=== PATIENT | female | born 1995 | race African-American/Black ===

== ENCOUNTER 2017-11-09 22:01 | Emergency (ER) | payer SELFPAY ==
[~2017-11-09] VITALS: Ht 167.6 cm; Wt 95.7 kg
[2017-11-09] MEDS ORDERED: IV NORMAL SALINE 1,000ML 1,000 ML IV ONE (23:00)
[2017-11-09] MEDS ORDERED: KETOROLAC 30 MG/ML VIAL. IV ONE (23:00)
[2017-11-09] MEDS ORDERED: ONDANSETRON PF 4 MG/2 ML VIAL. IV ONE (23:00)
[2017-11-09 23:30] LABS: BASO # 0.1 x10^3/uL (0.0-0.2); BASO % 1 % (0-3); EOS # 0.7 x10^3/uL (0.0-0.7); EOS % 6 % (0-3); HEMATOCRIT 40.9 % (36.0-47.0); HEMOGLOBIN 13.5 g/dL (12.0-15.5); LYMPH # 4.6 x10^3/uL (1.0-4.8); LYMPH % 39 % (24-48); MEAN CORPUSCULAR HEMOGLOBIN 30 pg (25-35); MEAN CORPUSCULAR HGB CONC 33 g/dL (31-37); MEAN CORPUSCULAR VOLUME 90 fL (79-100); MONO # 0.7 x10^3/uL (0.0-1.1); MONO % 6 % (0-9); NEUT # 5.6 x10^3uL (1.8-7.7); NEUT % 48 % (31-73); PLATELET COUNT 304 x10^3/uL (140-400); RED BLOOD COUNT 4.57 x10^6/uL (3.50-5.40); RED CELL DISTRIBUTION WIDTH 15.3 % (11.5-14.5); WHITE BLOOD COUNT 11.7 x10^3/uL (4.0-11.0)
[2017-11-09] MEDS ORDERED: CONTRAST GIVEN MC PRN (23:30)
[2017-11-09] MEDS ORDERED: IOHEXOL 300 MG/ML 75 ML VIAL. IV ONE (23:30)
[2017-11-09 23:34] LABS: BILIRUBIN,URINE NEG (NEG); CLARITY,URINE CLEAR; COLOR,URINE YELLOW; GLUCOSE,URINE NEG (NEG)
[2017-11-09 23:35] LABS: BACTERIA,URINE 0 /HPF (0-FEW); NITRITE,URINE NEG (NEG); RBC,URINE 0 /HPF (0-2); SQUAMOUS EPITHELIAL CELL,UR MANY /LPF; UROBILINOGEN,URINE 0.2 mg/dL (0.2 mg/dL); WBC,URINE OCC /HPF (0-4)
[2017-11-09 23:39] LABS: ALBUMIN 3.8 g/dL (3.4-5.0); ALBUMIN/GLOBULIN RATIO 1.1 (1.0-1.7); CALCIUM 9.1 mg/dL (8.5-10.1); CREATININE 0.8 mg/dL (0.6-1.0); GFR 107.6; TOTAL BILIRUBIN 0.3 mg/dL (0.2-1.0); TOTAL PROTEIN 7.4 g/dL (6.4-8.2)
--- NOTE | 2017-11-09 23:59 | RAD ---
CT abdomen and pelvis with contrast HISTORY: Umbilical abdominal pain and palpable mass, occasional constipation. TECHNIQUE: Helical CT imaging of the abdomen and pelvis 75 mL Omnipaque 300 intravenous contrast. Abdomen findings: There is mild striation of the right renal nephrogram and perhaps a slight delay of the nephrogram with mild right renal hydronephrosis may be indicative of pyelonephritis or sequela of a recently passed urinary calculus. Left kidney, pancreas, gallbladder, adrenals, liver and spleen are unremarkable. Moderate volume of stool within the colon. There is diastases of the rectus abdominis muscles with laxity of the abdominal wall without a discrete hernia sac. Appendix is negative. No bowel obstruction or inflammatory changes. No abdominal fluid or adenopathy. Lower lumbar spine disc bulges. Pelvis findings: Uterus, ovaries, bladder, rectum and bones are unremarkable. No pelvic fluid or adenopathy. IMPRESSION: 1. Mild right renal hydronephrosis and striation of the right renal nephrogram may be indicative of pyelonephritis. See discussion above. 2. The appendix is negative. 3. Diastases of the rectus abdominis muscles. Exposure: One or more of the following individualized dose reduction techniques were utilized for this examination: 1. Automated exposure control 2. Adjustment of the mA and/or kV according to patient size 3. Use of iterative reconstruction technique Electronically signed by: Pito Villa MD (11/09/2017 11:56 PM) [facility]
[2017-11-10] MEDS ORDERED: HYDR-971 PO (00:22)
--- NOTE | 2017-11-10 00:22 | PHYS DOC ---
Past History Past Medical History: No Pertinent History Past Surgical History: No Surgical History Alcohol Use: None Drug Use: None Adult General Chief Complaint Chief Complaint: ABDOMINAL PAIN HPI HPI Patient is a 22 year old female who presents with abdominal pain. The patient reports periumbilical abdominal tenderness with sensation of a lump, for about 1 week. She states the lump has been there constantly. She denies associated symptoms including fevers/chills, nausea, vomiting, diarrhea, dysuria, hematuria , vaginal bleeding/discharge. She denies past medical history, only abdominal surgery is tubal ligation. Review of Systems Review of Systems Constitutional: Denies fever or chills HENT: Denies nasal congestion or sore throat Respiratory: Denies cough or shortness of breath Cardiovascular: Denies chest pain or edema GI: Reports abdominal pain, denies nausea, vomiting, bloody stools or diarrhea : Denies dysuria or hematuria Musculoskeletal: Denies back pain or joint pain Integument: Denies rash or skin lesions Neurologic: Denies headache, focal weakness or sensory changes All other systems were reviewed and found to be within normal limits, except as documented in this note. Current Medications Current Medications Current Medications Medications (Trade) Dose Ordered Sig/Magdy Start Time Stop Time Status Last Admin Dose Admin Info (Do NOT chart on this entry -- for MONITORING) 1 each PRN DAILY PRN 11/09/17 23:30 11/11/17 23:29 Iohexol (Omnipaque 300 Mg/ml) 75 ml 1X ONCE 11/09/17 23:30 11/09/17 23:31 DC 11/09/17 23:29 75 ML Ketorolac Tromethamine (Toradol) 30 mg 1X ONCE 11/09/17 23:00 11/09/17 23:01 DC 11/09/17 22:59 30 MG Ondansetron HCl (Zofran) 4 mg 1X ONCE 11/09/17 23:00 11/09/17 23:01 DC 11/09/17 22:58 4 MG Sodium Chloride 1,000 ml @ 1,000 mls/hr 1X ONCE 11/09/17 23:00 11/09/17 23:59 DC 11/09/17 22:58 1,000 MLS/HR Allergies Allergies Allergies Coded Allergies Type Severity Reaction Last Updated Verified No Known Drug Allergies 11/09/17 No Physical Exam Physical Exam Constitutional: obese, no acute distress, non-toxic appearance. HENT: Normocephalic, atraumatic, bilateral external ears normal, oropharynx moist, nose normal. Eyes: conjunctiva normal, no discharge. Neck: supple, no stridor. Cardiovascular: RRR, no murmurs, no edema. Lungs & Thorax: LCTAB, no wheezing, no respiratory distress. Abdomen: soft, periumbilical tenderness with possible slight swelling laterally to the right from the umbilicus which is associated with tenderness, otherwise no focal tenderness, no rebound/guarding, nondistended. Skin: Warm, dry, no erythema, no rash. Back: No CVA tenderness. Extremities: No tenderness, no edema. Neurologic: Alert and oriented X 3, no focal deficits noted. Psychologic: Affect normal, judgement normal, mood normal. Current Patient Data Lab Results Laboratory Tests Test 11/09/17 22:18 11/09/17 22:25 White Blood Count 11.7 x10^3/uL (4.0-11.0) H Red Blood Count 4.57 x10^6/uL (3.50-5.40) Hemoglobin 13.5 g/dL (12.0-15.5) Hematocrit 40.9 % (36.0-47.0) Mean Corpuscular Volume 90 fL (79-100) Mean Corpuscular Hemoglobin 30 pg (25-35) Mean Corpuscular Hemoglobin Concent 33 g/dL (31-37) Red Cell Distribution Width 15.3 % (11.5-14.5) H Platelet Count 304 x10^3/uL (140-400) Neutrophils (%) (Auto) 48 % (31-73) Lymphocytes (%) (Auto) 39 % (24-48) Monocytes (%) (Auto) 6 % (0-9) Eosinophils (%) (Auto) 6 % (0-3) H Basophils (%) (Auto) 1 % (0-3) Neutrophils # (Auto) 5.6 x10^3uL (1.8-7.7) Lymphocytes # (Auto) 4.6 x10^3/uL (1.0-4.8) Monocytes # (Auto) 0.7 x10^3/uL (0.0-1.1) Eosinophils # (Auto) 0.7 x10^3/uL (0.0-0.7) Basophils # (Auto) 0.1 x10^3/uL (0.0-0.2) Sodium Level 140 mmol/L (136-145) Potassium Level 4.0 mmol/L (3.5-5.1) Chloride Level 105 mmol/L (98-107) Carbon Dioxide Level 30 mmol/L (21-32) Anion Gap 5 (6-14) L Blood Urea Nitrogen 16 mg/dL (7-20) Creatinine 0.8 mg/dL (0.6-1.0) Estimated GFR (Cockcroft-Gault) 107.6 BUN/Creatinine Ratio 20 (6-20) Glucose Level 94 mg/dL (70-99) Calcium Level 9.1 mg/dL (8.5-10.1) Total Bilirubin 0.3 mg/dL (0.2-1.0) Aspartate Amino Transferase (AST) 16 U/L (15-37) Alanine Aminotransferase (ALT) 26 U/L (14-59) Alkaline Phosphatase 126 U/L (46-116) H Total Protein 7.4 g/dL (6.4-8.2) Albumin 3.8 g/dL (3.4-5.0) Albumin/Globulin Ratio 1.1 (1.0-1.7) Urine Collection Type Unknown Urine Color Yellow Urine Clarity Clear Urine pH 6.0 Urine Specific [place] 1.020 Urine Protein Neg (NEG-TRACE) Urine Glucose (UA) Neg mg/dL (NEG) Urine Ketones (Stick) Neg mg/dL (NEG) Urine Blood Neg (NEG) Urine Nitrite Neg (NEG) Urine Bilirubin Neg (NEG) Urine Urobilinogen Dipstick 0.2 mg/dL (0.2 mg/dL) Urine Leukocyte Esterase Neg (NEG) Urine RBC 0 /HPF (0-2) Urine WBC Occ /HPF (0-4) Urine Squamous Epithelial Cells Many /LPF Urine Bacteria 0 /HPF (0-FEW) EKG EKG [] Radiology/Procedures Radiology/Procedures PROCEDURE: CT ABD PELV W/ IV CONTRST ONLY CT abdomen and pelvis with contrast HISTORY: Umbilical abdominal pain and palpable mass, occasional constipation. TECHNIQUE: Helical CT imaging of the abdomen and pelvis 75 mL Omnipaque 300 intravenous contrast. Abdomen findings: There is mild striation of the right renal nephrogram and perhaps a slight delay of the nephrogram with mild right renal hydronephrosis may be indicative of pyelonephritis or sequela of a recently passed urinary calculus. Left kidney, pancreas, gallbladder, adrenals, liver and spleen are unremarkable. Moderate volume of stool within the colon. There is diastases of the rectus abdominis muscles with laxity of the abdominal wall without a discrete hernia sac. Appendix is negative. No bowel obstruction or inflammatory changes. No abdominal fluid or adenopathy. Lower lumbar spine disc bulges. Pelvis findings: Uterus, ovaries, bladder, rectum and bones are unremarkable. No pelvic fluid or adenopathy. IMPRESSION: 1. Mild right renal hydronephrosis and striation of the right renal nephrogram may be indicative of pyelonephritis. See discussion above. 2. The appendix is negative. 3. Diastases of the rectus abdominis muscles. Exposure: One or more of the following individualized dose reduction techniques were utilized for this examination: 1. Automated exposure control 2. Adjustment of the mA and/or kV according to patient size 3. Use of iterative reconstruction technique Electronically signed by: Pito Villa MD (11/09/2017 11:56 PM) [facility] DICTATED AND SIGNED BY: PITO VILLA MD DATE: 11/09/17 2348[] Course & Med Decision Making Course & Med Decision Making Pertinent Labs and Imaging studies reviewed. (See chart for details) The patient presents with abdominal pain. Suspect possible umbilical hernia. Gave pain medication. Obtained labs, UA, CT abdomen/pelvis. She has diastasis of rectus abdominus muscles but no sign of hernia particularly one that is incarcerated or strangulated. Possible renal abnormality on CT but there was no evidence of UTI on her UA. She felt better after treatment. Recommend rest , hydration, pain medication as needed ideally tylenol or ibuprofen but will give limited quantity of norco, may not drink alcohol or drive while taking norco. Follow up with primary care, may need PT referral. Come back for high fever, severe pain, uncontrolled vomiting, any otherwise worsening condition. Discharged home in stable condition. [] Dragon Disclaimer Dragon Disclaimer This electronic medical record was generated, in whole or in part, using a voice recognition dictation system. Departure Departure: Impression: Primary Impression: Abdominal pain Additional Impression: Diastasis of rectus abdominis Disposition: HOME, SELF-CARE Condition: STABLE Referrals: PCP,NO (PCP) Patient Instructions: Abdominal Pain, [id number] Additional Instructions: You seen in the emergency department today for abdominal pain. Tests did not show a serious cause of symptoms. Your CT did show diastasis (loosening/ separation) of the rectus abdominal muscles which can occur after & childbirth. Please rest, drink fluids, take tylenol or ibuprofen for pain, use norco for severe pain. No drinking alcohol or driving while taking norco. Follow up with primary care in 2-3 days. You may need to do physical therapy to strengthen these muscles. Come back for high fever, severe pain, uncontrolled vomiting, any otherwise worsening condition. Scripts Hydrocodone Bit/Acetaminophen (NORCO 5-325 TABLET) 1 Each Tablet 1-2 TAB PO Q4-6HRS Y for SEVERE PAIN, #10 TAB Prov: GLENROY MCNEILL MD 11/10/17 Problem Qualifiers Primary Impression: Abdominal pain Abdominal location: unspecified location Qualified Codes: R10.9 - Unspecified abdominal pain GLENROY MCNEILL MD Nov 10, 2017 00:22
[2017-11-10 00:49] VITALS: BP 145/105
== END 2017-11-10 00:51 | disposition home or self-care (01) ==
LOC: ER 22:01
DX: Q79.59 Other congenital malformations of abdominal wall (principal); R10.33 Periumbilical pain
CPT/HCPCS: 36415; 74177; 80053; 81001; 85025; 96361; 96374; 96375; 99285; J1885; J2405; Q9967; J7030

== ENCOUNTER 2017-11-24 19:23 | Emergency (ER) | payer OTHER ==
[~2017-11-24] VITALS: Ht 167.6 cm; Wt 101.8 kg
[~2017-11-24 19:23] MED LIST: HYDR-971 PO
[2017-11-24] MEDS ORDERED: IV NORMAL SALINE 1,000ML 1,000 ML IV SCH (19:58)
[2017-11-24] MEDS ORDERED: MORPHINE SULFATE 4 MG/ML DISP.SYRIN. IV/SQ PRN (20:00)
[2017-11-24 20:04] LABS: BILIRUBIN,URINE NEG (NEG); CLARITY,URINE CLEAR; COLOR,URINE YELLOW; GLUCOSE,URINE NEG (NEG)
[2017-11-24 20:05] LABS: NITRITE,URINE NEG (NEG); UROBILINOGEN,URINE 0.2 mg/dL (0.2 mg/dL)
--- NOTE | 2017-11-24 20:05 | PHYS DOC ---
General Chief Complaint: ABDOMINAL PAIN Stated Complaint: ABDOMINAL PAIN X 1 WK Time Seen by MD: 19:36 Source: patient Exam Limitations: no limitations Problems: History of Present Illness Initial Comments Patient is a 22-year-old female who comes in the ED complaining of abdominal pain. Patient states for the past 4-5 days she's had abdominal pain which has been changing. She states that initially it was located periumbilically described as dull and crampy and over the past few days it has migrated down to the right lower quadrant. She's had decreased appetite, states she hasn't had anything to eat since yesterday. She does feel as if her abdomen is mildly swollen, she had 2 episodes of vomiting today after feeling as if her abdomen swelled over time, she began burping, then vomited with relief. She hasn't had a normal bowel movement since yesterday, states she had a small one this morning which was very low volume and loose. No blood in stools or emesis denies fever chills sweats or myalgias no travel or bad food exposure. Patient is 2 para 2 she has history of tubal ligation and lysis of adhesions in the past. She is also having a scant whitish vaginal discharge denies any recent antibiotics or steroids or other medications for that matter. She delivered a healthy baby 4 months ago and has had one. Since that time and is 5 days late currently for this menstrual cycle. Urine dipstick is negative in the emergency department as is urine hCG. Timing/Duration: 1 week Severity: moderate Modifying Factors: worse with eating, worse with movement, improves with rest Associated Symptoms: loss of appetite, nausea/vomiting, other Allergies: Coded Allergies: No Known Drug Allergies (Unverified , 11/09/17) Past Medical History Medical History: no pertinent history Surgical History: other (TL, lysis adhesions) Para: 2 : 2 LMP (Females 10-50): s/p TL, missed last month's period Social History Smoker: non-smoker Alcohol: none Drugs: none Review of Systems Constitutional: denies chills, denies diaphoresis, denies fever, denies malaise Respiratory: denies cough, denies shortness of breath Cardiovascular: denies chest pain, denies palpitations Gastrointestinal: see HPI, abdominal pain, constipation, denies diarrhea, denies nausea, vomiting Genitourinary: see HPI, discharge, denies dysuria, denies frequency, denies hematuria Musculoskeletal: denies back pain, denies joint swelling, denies muscle pain, denies neck pain Psychiatric/Neurological: denies headache, denies numbness, denies paresthesia , denies weakness Hematologic/Lymphatic: denies blood clots, denies easy bleeding, denies easy bruising Physical Exam General Appearance: no apparent distress, obese Eyes: bilateral eye normal inspection, bilateral eye PERRL, bilateral eye EOMI Ear, Nose, Throat: hearing grossly normal, normal ENT inspection, normal pharynx Neck: non-tender, supple Respiratory: normal breath sounds, no respiratory distress Cardiovascular: normal peripheral pulses, regular rate, rhythm Gastrointestinal: soft (mildly distended/tympanic, bilateral lower quadrant tenderness mild on the left, exquisite McBurney point tenderness on the right without rebound guarding or masses negative Oliveira bowel sounds are diminished) Rectal: deferred Back: no CVA tenderness, no vertebral tenderness Extremities: normal range of motion, non-tender Neurologic/Psychiatric: reweaver II-XII nml as tested, no motor/sensory deficits, alert, normal mood/affect, oriented x 3 Skin: normal color, warm/dry Orders, Labs, Meds Urine dipstick and urine negative in the emergency department 1 L normal saline IV bolus, Toradol 30 mg, Zofran 4 mg and when necessary dose morphine 4 mg all ordered intravenously. Labs CT in the works patient is resting comfortably. PATIENT: MAGGIE SANCHEZ ACCOUNT: [id number] : 1995 LOCATION: ER AGE: 22 SEX: F EXAM STATUS: PRE ER ORD. PHYSICIAN: MARTITA ADAMS DO REASON: RLQ pain, anorexia PROCEDURE: CT ABD PELV W/ IV CONTRST ONLY CT SCAN OF THE ABDOMEN AND PELVIS WITH IV CONTRAST. History: Right lower quadrant pain and anorexia Comparison:None. Procedure: Contiguous axial images of the abdomen and pelvis were performed after the administration of 75 cc of Omni 300 IV contrast and without oral contrast. CT Abdomen with contrast: Findings: Liver: Unremarkable Spleen: Unremarkable Pancreas: Unremarkable Adrenal Glands: Unremarkable Kidneys: Unremarkable There is no free air. There is no free fluid. There are multiple small borderline size mesenteric lymph nodes in the right lower quadrant. CT Pelvis with Contrast: Findings: The urinary bladder is partially collapsed and there is apparent mild wall thickening. There is no free fluid. The appendix is normal. Impression: 1. Mild lymphadenopathy in the right lower quadrant of the abdomen could be lymphadenitis. 2. Mild wall thickening of the urinary bladder could be nondistention however cystitis is possible. PQRS Compliance Statement: One or more of the following individualized dose reduction techniques were utilized for this examination: 1. Automated exposure control 2. Adjustment of the mA and/or kV according to patient size 3. Use of iterative reconstruction technique Electronically signed by: Janel Chang III, MD (11/24/2017 8:48 PM) [facility] DICTATED AND SIGNED BY: JANEL CHANG III, MD DATE: 11/24/172038 CC: PCP,NO; MARTITA ADAMS DO ~ I discussed menstrual cycle after and advised her that it would likely take several cycles before she became regular. I discussed increase fluid intake as well as Alicia few vegetables bananas and other foods containing potassium. I discussed the nonspecific lymphadenopathy noted in her abdomen in the absence of any emergent condition requiring further evaluation or treatment in the emergency department. She was given a Zofran ODT start pack , dicyclomine by mouth as well as a glycerin suppository prior to discharge. Signs and symptoms to monitor for as well as indications for urgent return to the department were discussed and her questions were answered to her satisfaction and she expressed agreement and understanding with the treatment plan. She will follow up with her OB Dr. Poe next week as advised. Departure Time of Disposition: 21:01 Disposition: 01 HOME, SELF-CARE Diagnosis: abdominal pain, hypokalemia, constipation, irregul Condition: GOOD Patient Instructions: Abdominal Pain (Nonspecific), Constipation, Adult, Easy- to-Read, Hypokalemia-Brief Additional Instructions: Please review the patient education materials given by ED staff. Aggressive hydration with Gatorade or water. Clear liquids today, advance diet slowly tomorrow as tolerated. [id number] Tylenol as needed. Prescription: Zofran ODT, dicyclomine Eat 1 banana twice daily for potassium replacement until follow-up with your doctor. Follow-up with your human resources vice president Dr. Poe next week. Return to ED with new or changing symptoms. MARTITA ADAMS DO Nov 24, 2017 20:05
[2017-11-24] MEDS ORDERED: CONTRAST GIVEN MC PRN (20:15)
[2017-11-24 20:24] LABS: BARBITURATES NEG (NEG); BENZODIAZEPINES NEG (NEG); CANNABINOIDS NEG (NEG); COCAINE NEG (NEG); METHADONE NEG (NEG); OPIATES NEG (NEG); PHENCYCLIDINE NEG (NEG)
[2017-11-24 20:25] LABS: AMPHETAMINE/METHAMPHETAMINE NEG (NEG)
[2017-11-24] MEDS ORDERED: KETOROLAC 30 MG/ML VIAL. IV ONE (20:30)
[2017-11-24] MEDS ORDERED: IOHEXOL 300 MG/ML 75 ML VIAL. IV ONE (20:30)
[2017-11-24] MEDS ORDERED: ONDANSETRON PF 4 MG/2 ML VIAL. IV ONE (20:30)
[2017-11-24 20:39] LABS: BASO # 0.1 x10^3/uL (0.0-0.2); BASO % 1 % (0-3); EOS # 0.6 x10^3/uL (0.0-0.7); EOS % 4 % (0-3); HEMOGLOBIN 14.2 g/dL (12.0-15.5); LYMPH # 4.2 x10^3/uL (1.0-4.8); LYMPH % 31 % (24-48); MEAN CORPUSCULAR HEMOGLOBIN 30 pg (25-35); MEAN CORPUSCULAR HGB CONC 33 g/dL (31-37); MEAN CORPUSCULAR VOLUME 90 fL (79-100); MONO # 0.8 x10^3/uL (0.0-1.1); MONO % 6 % (0-9); NEUT % 59 % (31-73); PLATELET COUNT 274 x10^3/uL (140-400); RED BLOOD COUNT 4.78 x10^6/uL (3.50-5.40); RED CELL DISTRIBUTION WIDTH 15.1 % (11.5-14.5); WHITE BLOOD COUNT 13.7 x10^3/uL (4.0-11.0)
[2017-11-24 20:51] LABS: ALBUMIN 3.9 g/dL (3.4-5.0); CALCIUM 8.9 mg/dL (8.5-10.1); CREATININE 0.9 mg/dL (0.6-1.0); GFR 93.9; POTASSIUM 3.4 mmol/L (3.5-5.1); TOTAL BILIRUBIN 0.3 mg/dL (0.2-1.0); TOTAL PROTEIN 7.9 g/dL (6.4-8.2)
--- NOTE | 2017-11-24 20:51 | RAD ---
CT SCAN OF THE ABDOMEN AND PELVIS WITH IV CONTRAST. History: Right lower quadrant pain and anorexia Comparison:None. Procedure: Contiguous axial images of the abdomen and pelvis were performed after the administration of 75 cc of Omni 300 IV contrast and without oral contrast. CT Abdomen with contrast: Findings: Liver: Unremarkable Spleen: Unremarkable Pancreas: Unremarkable Adrenal Glands: Unremarkable Kidneys: Unremarkable There is no free air. There is no free fluid. There are multiple small borderline size mesenteric lymph nodes in the right lower quadrant. CT Pelvis with Contrast: Findings: The urinary bladder is partially collapsed and there is apparent mild wall thickening. There is no free fluid. The appendix is normal. Impression: 1. Mild lymphadenopathy in the right lower quadrant of the abdomen could be lymphadenitis. 2. Mild wall thickening of the urinary bladder could be nondistention however cystitis is possible. PQRS Compliance Statement: One or more of the following individualized dose reduction techniques were utilized for this examination: 1. Automated exposure control 2. Adjustment of the mA and/or kV according to patient size 3. Use of iterative reconstruction technique Electronically signed by: Justus Currie III, MD (11/24/2017 8:48 PM) [facility]
[2017-11-24] MEDS ORDERED: GLYC1SUP RC (21:06)
[2017-11-24] MEDS ORDERED: DICY20TA3 PO (21:06)
[2017-11-24] MEDS ORDERED: ONDA4TAB10 PO (21:06)
[2017-11-24] MEDS ORDERED: DICYCLOMINE HCL 20 MG TABLET PO ONE (21:15)
[2017-11-24 21:19] VITALS: BP 164/98
[2017-11-24] MEDS ORDERED: ONDANSETRON 4MG ODT 4TABLET STARTPACK. PO ONE (21:30)
[2017-11-24] MEDS ORDERED: GLYCERIN ADULT 1 SUPP.RECT. PR ONE (21:30)
== END 2017-11-24 21:24 | disposition home or self-care (01) ==
LOC: ER 19:23
DX: K59.00 Constipation, unspecified (principal); E87.6 Hypokalemia; N89.8 Other specified noninflammatory disorders of vagina; Z98.51 Tubal ligation status
CPT/HCPCS: 36415; 74177; 80053; 80307; 81003; 81025; 83690; 85025; 96361; 96374; 96375; 99285; J1885; J2270; J2405; Q0162; Q9967; G0479; J7030

== ENCOUNTER 2018-01-26 09:21 | Emergency (ER) | payer SELFPAY ==
[~2018-01-26] VITALS: Ht 167.6 cm; Wt 98.9 kg
[~2018-01-26 09:21] MED LIST changes: +DICY20TA3 PO; +GLYC1SUP RC; +ONDA4TAB10 PO
[2018-01-26] MEDS ORDERED: IBUPROFEN 600 MG TABLET. PO ONE (10:15)
[2018-01-26] MEDS ORDERED: LIDO:MAALOX 1:1 20 ML SINGLE DOSE PO ONE (10:30)
[2018-01-26] MEDS ORDERED: PENICILLIN G BENZATHINE LA 1,200,000 UNIT/2 ML DISP.SYRIN. IM ONE (10:30)
[2018-01-26 10:38] LABS: INFLUENZA A PATIENT NEGATIVE (NEGATIVE); INFLUENZA B PATIENT NEGATIVE (NEGATIVE)
[2018-01-26 10:51] VITALS: BP 150/97
--- NOTE | 2018-01-26 10:52 | PHYS DOC ---
General Chief Complaint: sore throat Stated Complaint: sore throat Time Seen by MD: 09:47 Source: patient Exam Limitations: no limitations Problems: History of Present Illness Initial Comments 22 female presents with 24-hour sore throat. Throat pain limiting by mouth intake patient is still drinking fluids she denies difficulty breathing or difficulty swallowing. She's had chills and sweats no measured fevers no known sick contacts with similar symptoms. She normally healthy and is a nonsmoker. Timing/Duration: yesterday Severity: severe Location: throat Prearrival Treatment: over the counter meds Modifying Factors: worse with coughing Associated Symptoms: malaise, poor solids intake, sore throat Allergies: Coded Allergies: No Known Drug Allergies (Unverified , 11/09/17) Past Medical History Medical History: no pertinent history Surgical History: other Social History Smoker: non-smoker Alcohol: none Drugs: none Constitutional: denies chills, denies diaphoresis, denies fever, malaise Ears: denies dizziness, denies pain, denies tinnitus Nose: denies clots, denies congestion, denies epistaxis Mouth: denies pain, denies swelling Throat: see HPI, denies discharge, denies neck stiffness, denies difficulty with fluids Respiratory: denies cough, denies shortness of breath, denies wheezing Cardiovascular: denies chest pain, denies palpitations, denies syncope Gastrointestinal: denies abdominal pain, denies nausea, denies vomiting Physical Exam General Appearance: WD/WN, no apparent distress Eyes: bilateral eye normal inspection, bilateral eye PERRL, bilateral eye EOMI Nose: normal inspection Mouth/Throat: other (pharynx is beefy red with exudate airway is patent) Neck: supple, trachea midline, lymphadenopathy (R), lymphadenopathy (L) Cardiovascular/Respiratory: normal peripheral pulses, normal breath sounds, no respiratory distress Neurologic/Psychiatric: health information manager II-XII nml as tested, no motor/sensory deficits, alert, oriented x 3 Skin: normal color, warm/dry Orders, Labs, Meds Influenza negative, strep positive Penicillin given IM Patient is feeling much better after GI cocktail. Departure Time of Disposition: 10:51 Disposition: 01 HOME, SELF-CARE Diagnosis: strep pharyngitis Condition: GOOD Patient Instructions: Strep Throat, [id number] Additional Instructions: Please review the patient education materials given by ED staff. Aggressive hydration with Gatorade and water. [id number] Tylenol, ibuprofen, and analgesic throat sprays as needed. The penicillin injection he received in the emergency department should be sufficient to resolve or strep infection. Follow-up with a doctor in 10-14 days for recheck. Return to ED with new or changing symptoms. CHAPARRO ADAMS DO Jan 26, 2018 10:52
== END 2018-01-26 10:56 | disposition home or self-care (01) ==
LOC: ER 09:21
DX: J02.0 Streptococcal pharyngitis (principal)
CPT/HCPCS: 87804; 87880; 96372; 99284; J0561

== ENCOUNTER 2018-04-12 10:18 | Emergency (ER) | payer SELFPAY ==
[~2018-04-12] VITALS: Ht 167.6 cm; Wt 98.9 kg
[2018-04-12] MEDS ORDERED: diphenhydrAMINE 50 MG/ML VIAL IVP ONE (10:30)
[2018-04-12] MEDS ORDERED: IV NORMAL SALINE 1,000ML 1,000 ML IV ONE (10:30)
[2018-04-12] MEDS ORDERED: METOCLOPRAMIDE HCL 10 MG/2 ML VIAL. IV ONE (10:30)
--- NOTE | 2018-04-12 11:07 | RAD ---
CT of the head without contrast, 04/12/2018: HISTORY: Headache The ventricles are within normal limits in size. There is no shift of the midline structures. There is no evidence of acute intracranial hemorrhage or mass effect. Moderate mucosal thickening is present in both ethmoid sinuses. The maxillary sinuses are incompletely visualized. IMPRESSION: 1. No acute intracranial abnormality is detected. 2. Inflammatory changes in both ethmoid sinuses. Electronically signed by: Lázaro Phillips MD (04/12/2018 11:03 AM) [facility]
--- NOTE | 2018-04-12 11:50 | PHYS DOC ---
Past History Past Medical History: Other Past Surgical History: Tubal ligation Alcohol Use: None Drug Use: None Adult General Chief Complaint Chief Complaint: HEADACHE HPI HPI 22-year-old female presenting to the emergency pertinent today with headache. Headache moderate in severity associated with nausea. His been present for 2 weeks. Worse with light and sound. Improved with ibuprofen mildly. She denies a history of headaches and reports that this is an atypical headache. She denies any recent exposures to viral exanthems or tick bites. She reports mild intermittent blurred vision. She denies fevers chills neck stiffness numbness weakness tingling dysarthria or dysphasia. Review of systems is negative for chest pain shortness of breath abdominal pain nausea vomiting. She denies being . All other review of systems is negative unless otherwise noted in history of present illness. ED course: 22-year-old female presenting today to the emergency department with a headache. On arrival she is afebrile with mildly elevated blood pressure. Pulse is within normal limits. Saturating well on room air. Normal neurologic exam. I had a fairly extensive risk-benefit discussion with the patient about diagnostic workup for atypical headache. I always perform head CT with lumbar puncture for atypical headaches to evaluate patients for infection bleeding and pseudotumor cerebri along with other conditions. The patient does not desire to have a lumbar puncture. She was okay with having a head CT. She understand the risk and benefits and the lack of ability for only a head CT to rule out life- threatening conditions. She demonstrates verbal understanding that this could lead to including but not limited to disability or chronic suffering. Patient is willing to take this risk upon herself. Head CT performed which was unremarkable. Patient refuses lumbar puncture. Patient accepts risk. Patient signed out AMA. Patient informed that we'll be happy to take care of her if she desires to come back. The patient was then to follow up with their primary care physician over the next 2-3 days. They were to return if their symptoms worsened or if they were concerned for any reason. [id number] discharge instructions and return precautions were given. Patient's questions were answered to their satisfaction. Patient is comfortable with plan. Review of Systems Review of Systems SEE ABOVE. Current Medications Current Medications Current Medications Medications (Trade) Dose Ordered Sig/Magdy Start Time Stop Time Status Last Admin Dose Admin Diphenhydramine HCl (Benadryl) 25 mg 1X ONCE 04/12/18 10:30 04/12/18 10:34 DC 04/12/18 10:47 25 MG Metoclopramide HCl (Reglan Vial) 10 mg 1X ONCE 04/12/18 10:30 04/12/18 10:34 DC 04/12/18 10:46 10 MG Sodium Chloride 1,000 ml @ 1,000 mls/hr 1X ONCE 04/12/18 10:30 04/12/18 11:29 DC 04/12/18 10:46 1,000 MLS/HR Allergies Allergies Allergies Coded Allergies Type Severity Reaction Last Updated Verified No Known Drug Allergies 04/12/18 No Physical Exam Physical Exam SEE ABOVE Constitutional: Well developed, well nourished, no acute distress, non-toxic appearance. HENT: Normocephalic, atraumatic, bilateral external ears normal, oropharynx moist, no oral exudates, nose normal. No nuchal rigidity. Eyes: PERRLA, EOMI, conjunctiva normal, no discharge. Neck: Normal range of motion, no tenderness, supple, no stridor. [] Cardiovascular:Heart rate regular rhythm, no murmur Lungs & Thorax: Bilateral breath sounds clear to auscultation Abdomen: Bowel sounds normal, soft, no tenderness, no masses, no pulsatile masses. [] Skin: Warm, dry, no erythema, no rash. Back: No tenderness, no CVA tenderness. Extremities: No tenderness, no cyanosis, no clubbing, ROM intact, no edema. Neurologic: Mental status: Awake oriented and alert x3 Cranial nerves: Extraocular movements intact, eyebrows edwige bilaterally, smile symmetric, uvula elevation nl, shoulder shrug intact bilaterally, tongue protrusion normal DTRs: 2+ Sensation: equal and normal in all extremities Strength: 5/5 in upper and lower extremities bilaterally Psychologic: Affect normal, judgement normal, mood normal. Current Patient Data Vital Signs Vital Signs Date Time Temp Pulse Resp B/P (MAP) Pulse Ox O2 Delivery O2 Flow Rate FiO2 04/12/18 10:26 98.6 90 16 98 Room Air Lab Results Laboratory Tests Test 04/12/18 09:40 POC Urine HCG, Qualitative hcg negative (Negative) EKG EKG [] Radiology/Procedures Radiology/Procedures [] Course & Med Decision Making Course & Med Decision Making Pertinent Labs and Imaging studies reviewed. (See chart for details) [] Dragon Disclaimer Dragon Disclaimer This electronic medical record was generated, in whole or in part, using a voice recognition dictation system. Departure Departure: Impression: Primary Impression: Headache Disposition: AGAINST MEDICAL ADVICE Condition: STABLE Referrals: PCP,NO (PCP) Patient Instructions: General Headache Without Cause, [id number] Additional Instructions: Thank you for allowing us to participate in your care today. Return if you desire to complete the workup with a lumbar puncture. Followup with your primary care physician in 3 days if your symptoms do not improve. Call your Primary Doctor tomorrow and inform them of your visit today. If you do not have a primary care provider you can ask for a list of our primary care providers. Return to the emergency department you have any new or concerning findings. This should be evaluated by the primary care physician and any necessary consulting services for continued management within a few days after discharge. Return to emergency room if you have any new or concerning symptoms including but not limited to fever, chills, nausea, vomiting, intractable pain, any new rashes, chest pain, shortness of air, uncontrolled bleeding, difficulty breathing, and/or vision loss. If at any time, you are having difficulty getting into your primary care doctor or a specialist, return to the emergency department. OPAL VARGHESE MD April 12, 2018 11:50
[2018-04-12 12:01] VITALS: BP 134/77
== END 2018-04-12 12:02 | disposition left against medical advice (07) ==
LOC: ER 10:18
DX: R51 Headache (principal); R11.0 Nausea; H53.8 Other visual disturbances
CPT/HCPCS: 70450; 81025; 96374; 96375; 99284; J1200; J2765; J7030

== ENCOUNTER 2019-01-19 07:08 | Emergency (ER) | payer SELFPAY ==
[~2019-01-19] VITALS: Ht 162.6 cm; Wt 107.5 kg
[~2019-01-19 07:08] MED LIST changes: +HYDR-3165 PO; -HYDR-971 PO
[2019-01-19 07:14] VITALS: BP 157/98
[2019-01-19] MEDS ORDERED: NAPR-683 PO (07:35)
[2019-01-19] MEDS ORDERED: AMOX500C PO (07:35)
[2019-01-19] MEDS ORDERED: BENZ100C PO (07:35)
--- NOTE | 2019-01-19 07:35 | PHYS DOC ---
Past History Past Medical History: No Pertinent History Past Surgical History: Tubal ligation Alcohol Use: None Drug Use: None Adult General Chief Complaint Chief Complaint: GENERALIZED BODY ACHES HPI HPI Patient is a 23 year old female who presents with complaining of generalized body ache. Patient complaining of nasal congestion, sore throat, dry cough and generalized body aches for the last 3-4 days with subjective fever and chills. Patient denies , vomiting, diarrhea. Review of Systems Review of Systems Constitutional: Reports fever and chills Eyes: Denies change in visual acuity, redness, or eye pain [] HENT: Reports nasal congestion and sore throat Respiratory: Reports cough, denies shortness of breath [] Cardiovascular: No additional information not addressed in HPI [] GI: Denies abdominal pain, nausea, vomiting, bloody stools or diarrhea [] : Denies dysuria or hematuria [] Musculoskeletal: Denies back pain or joint pain , reports myalgia[] Integument: Denies rash or skin lesions [] Neurologic: Denies headache, focal weakness or sensory changes [] Endocrine: Denies polyuria or polydipsia [] All other systems were reviewed and found to be within normal limits, except as documented in this note. Current Medications Current Medications Current Medications Medications (Trade) Dose Ordered Sig/Magdy Start Time Stop Time Status Last Admin Dose Admin Albuterol/ Ipratropium (Duoneb) 3 ml 1X ONCE 01/19/19 07:30 01/19/19 07:31 UNV Benzonatate (Tessalon Perle) 100 mg 1X ONCE 01/19/19 07:30 01/19/19 07:31 UNV Allergies Allergies Allergies Coded Allergies Type Severity Reaction Last Updated Verified No Known Drug Allergies 04/12/18 No Physical Exam Physical Exam Constitutional: Well developed, well nourished, mild distress, non-toxic appearance. [] HENT: Normocephalic, atraumatic, bilateral external ears normal, oropharynx moist, pharyngeal erythema, no oral exudates, nose normal. [] Eyes: PERRLA, EOMI, conjunctiva normal, no discharge. [] Neck: Normal range of motion, no tenderness, supple, no stridor. [] Cardiovascular:Heart rate regular rhythm, no murmur [] Lungs & Thorax: Bilateral breath sounds clear to auscultation [] Abdomen: Bowel sounds normal, soft, no tenderness, no masses, no pulsatile masses. [] Skin: Warm, dry, no erythema, no rash. [] Back: No tenderness, no CVA tenderness. [] Extremities: No tenderness, no cyanosis, no clubbing, ROM intact, no edema. [] Neurologic: Alert and oriented X 3, normal motor function, normal sensory function, no focal deficits noted. [] Psychologic: Affect normal, judgement normal, mood normal. [] Current Patient Data Vital Signs Vital Signs Date Time Temp Pulse Resp B/P (MAP) Pulse Ox O2 Delivery O2 Flow Rate FiO2 01/19/19 07:14 98.3 78 20 20 Room Air EKG EKG [] Radiology/Procedures Radiology/Procedures [] Course & Med Decision Making Course & Med Decision Making Evaluation of patient in ER showed 23-year-old female patient presented with flulike symptom for the last 3-4 days. On discharge patient home to diagnose of flulike symptom and instruction to increase fluid intake and follow up with the primary care physician. Dragon Disclaimer Dragon Disclaimer This electronic medical record was generated, in whole or in part, using a voice recognition dictation system. Departure Departure: Impression: Primary Impression: Flu-like symptoms Disposition: HOME, SELF-CARE (At 0740) Condition: STABLE Referrals: PCP,LEON (PCP) Patient Instructions: Cough, Adult, Viral Syndrome Additional Instructions: Drink plenty of liquids Follow-up with your primary care physician in 3-5 days Return to ER if not getting better Scripts Benzonatate (TESSALON PERLE) 100 Mg Capsule 1 CAP PO TID for cough, #21 CAP Prov: PEREZ QUIJANO MD 01/19/19 Naproxen (NAPROSYN) 500 Mg Tablet 500 MG PO BID for pain, #20 TAB Prov: PEREZ QUIJANO MD 01/19/19 Amoxicillin (AMOXICILLIN) 500 Mg Capsule 1 CAP PO TID for URI, #30 CAP Prov: PEREZ QUIJANO MD 01/19/19 PEREZ QUIJANO MD Jan 19, 2019 07:35
[2019-01-19] MEDS ORDERED: BENZONATATE 100 MG CAPSULE. PO ONE (08:00)
[2019-01-19] MEDS ORDERED: IPRATRPIUM/ALBUTEROL 0.5/2.5MG 3 ML NEBU. NEB ONE (08:00)
== END 2019-01-19 07:50 | disposition home or self-care (01) ==
LOC: ER 07:08
DX: M79.10 Myalgia, unspecified site (principal); R09.81 Nasal congestion; J02.9 Acute pharyngitis, unspecified; R05 Cough; R50.9 Fever, unspecified
CPT/HCPCS: 81025; 94640; 99283; J7620

== ENCOUNTER 2019-02-18 09:26 | Emergency (ER) | payer SELFPAY ==
[~2019-02-18] VITALS: Ht 162.6 cm; Wt 101.8 kg
[~2019-02-18 09:26] MED LIST changes: +AMOX500C PO; +BENZ100C PO; +NAPR-683 PO
[2019-02-18 09:33] VITALS: BP 144/70
[2019-02-18] MEDS ORDERED: D-ME118S2 PO (09:42)
--- NOTE | 2019-02-18 09:43 | PHYS DOC ---
Past History Past Medical History: No Pertinent History Past Surgical History: Tubal ligation Alcohol Use: None Drug Use: None Adult General Chief Complaint Chief Complaint: SHORTNESS OF BREATH HPI HPI Patient is a 23-year-old female who presents with sinus congestion, no shortness of breath, bilateral ear fullness. This is has been going on for the past 2 weeks. No cough. No relief with [id number] Benadryl. Patient has not seen her primary care physician. Nothing seems to make the symptoms better or worse.[] Review of Systems Review of Systems Constitutional: Denies fever or chills [] Eyes: Denies change in visual acuity, redness, or eye pain [] HENT: See history of present illness[] Respiratory: Denies cough or shortness of breath [] Cardiovascular: No chest pain or palpitations[] GI: Denies abdominal pain, nausea, vomiting, bloody stools or diarrhea [] : Denies dysuria or hematuria [] Musculoskeletal: Denies back pain or joint pain [] Integument: Denies rash or skin lesions [] Neurologic: Denies headache, focal weakness or sensory changes [] Endocrine: Denies polyuria or polydipsia [] All other systems were reviewed and found to be within normal limits, except as documented in this note. Allergies Allergies Allergies Coded Allergies Type Severity Reaction Last Updated Verified No Known Drug Allergies 04/12/18 No Physical Exam Physical Exam Constitutional: Well developed, well nourished, no acute distress, non-toxic appearance. [] HENT: Normocephalic, atraumatic, bilateral external ears normal, TMs are clear, no blood, no fluid, there is sinus tenderness to percussion in the maxillary and frontal sinuses, oropharynx moist, no oral exudates, nose normal. [] Eyes: PERRLA, EOMI, conjunctiva normal, no discharge. [] Neck: Normal range of motion, no tenderness, supple, no stridor. [] Cardiovascular:Heart rate regular rhythm, no murmur [] Lungs & Thorax: Bilateral breath sounds clear to auscultation [] Abdomen: Bowel sounds normal, soft, no tenderness, no masses, no pulsatile masses. [] Skin: Warm, dry, no erythema, no rash. [] Back: No tenderness, no CVA tenderness. [] Extremities: No tenderness, no cyanosis, no clubbing, ROM intact, no edema. [] Neurologic: Alert and oriented X 3, normal motor function, normal sensory function, no focal deficits noted. [] Psychologic: Affect normal, judgement normal, mood normal. [] EKG EKG [] Radiology/Procedures Radiology/Procedures [] Course & Med Decision Making Course & Med Decision Making Pertinent Labs and Imaging studies reviewed. (See chart for details) Medical decision making: Patient appears to have a pansinusitis, given that most sinusitis is viral will attempt symptomatic treatment and have patient follow up with primary care physician for evaluation of the need for antibiotic therapy. Patient's oxygen saturation is normal 99%, no wheezes, no shortness of breath appreciated on exam. Patient has no PE risk factors.[] Dragon Disclaimer Dragon Disclaimer This electronic medical record was generated, in whole or in part, using a voice recognition dictation system. Departure Departure: Impression: Primary Impression: Pansinusitis Disposition: HOME, SELF-CARE Condition: IMPROVED Referrals: PCP,LEON (PCP) Patient Instructions: Sinusitis Additional Instructions: Drink plenty of fluids. Take the medication as directed. Follow-up with your regular doctor in 2 days. If you do not have regular doctor list of local clinics will be provided for you. Return to the ER if worsening symptoms, you develop a fever of more than 101, or any other concerns. Scripts D-Methorphan Hb/Prometh Hcl (PROMETHAZINE-DM SYRUP) 118 Ml Syrup 5 ML PO PRN Q4HRS for CONGESTION, #120 ML Prov: DEMOND CANTOR DO 02/18/19 Problem Qualifiers Primary Impression: Pansinusitis Chronicity: unspecified Qualified Codes: J32.4 - Chronic pansinusitis DEMOND CANTOR DO Feb 18, 2019 09:43
== END 2019-02-18 09:53 | disposition home or self-care (01) ==
LOC: ER 09:26
DX: J32.4 Chronic pansinusitis (principal)
CPT/HCPCS: 99282; 99283

== ENCOUNTER 2019-03-18 18:56 | Emergency (ER) | payer SELFPAY ==
[~2019-03-18] VITALS: Ht 167.6 cm; Wt 104.3 kg
[~2019-03-18 18:56] MED LIST changes: +D-ME118S2 PO
[2019-03-18 19:39] LABS: BILIRUBIN,URINE NEG (NEG); CLARITY,URINE CLEAR; COLOR,URINE YELLOW; GLUCOSE,URINE NEG (NEG); U PREG PATIENT NEGATIVE (NEG)
[2019-03-18 19:40] LABS: BACTERIA,URINE 0 /HPF (0-FEW); NITRITE,URINE NEG (NEG); RBC,URINE OCC /HPF (0-2); SQUAMOUS EPITHELIAL CELL,UR OCC /LPF; UROBILINOGEN,URINE 0.2 mg/dL (0.2 mg/dL); WBC,URINE 0 /HPF (0-4)
[2019-03-18 19:44] LABS: AMPHETAMINE/METHAMPHETAMINE NEG (NEG); BARBITURATES NEG (NEG); BENZODIAZEPINES NEG (NEG); CANNABINOIDS NEG (NEG); COCAINE NEG (NEG); METHADONE NEG (NEG); OPIATES NEG (NEG); PHENCYCLIDINE NEG (NEG)
[2019-03-18] MEDS: IV RINGERS SOLUTION,LACTATED 1,000 ML IV SCH (19:47)
[2019-03-18] MEDS: ONDANSETRON PF 4 MG/2 ML VIAL. IV ONE (19:47)
[2019-03-18] MEDS: MAGNESIUM HYDROXIDE 2,400 MG/30 ML ORAL.SUSP. PO ONE (19:47)
[2019-03-18] MEDS: FAMOTIDINE 20 MG/2 ML VIAL IVP ONE (19:47)
[2019-03-18 20:15] LABS: BASO # 0.1 x10^3/uL (0.0-0.2); BASO % 1 % (0-3); EOS # 0.7 x10^3/uL (0.0-0.7); EOS % 5 % (0-3); HEMOGLOBIN 13.9 g/dL (12.0-15.5); LYMPH # 4.6 x10^3/uL (1.0-4.8); LYMPH % 34 % (24-48); MEAN CORPUSCULAR HEMOGLOBIN 30 pg (25-35); MEAN CORPUSCULAR HGB CONC 33 g/dL (31-37); MEAN CORPUSCULAR VOLUME 90 fL (79-100); MONO # 0.8 x10^3/uL (0.0-1.1); MONO % 6 % (0-9); NEUT # 7.6 x10^3uL (1.8-7.7); NEUT % 55 % (31-73); PLATELET COUNT 324 x10^3/uL (140-400); RED BLOOD COUNT 4.69 x10^6/uL (3.50-5.40); RED CELL DISTRIBUTION WIDTH 15.2 % (11.5-14.5); WHITE BLOOD COUNT 13.8 x10^3/uL (4.0-11.0)
--- NOTE | 2019-03-18 20:21 | ED.ADGEN ---
Past History Past Medical History: Hypertension, Ovarian Cyst Past Surgical History: Tubal ligation Alcohol Use: None Drug Use: None Adult General Chief Complaint Chief Complaint ".. I been sicked.. my stomach hurts..."... I have some discomfort down here in my lower abdomen... I have a little bit of vaginal discharge,, I ve had IV had problems ever since my last .. " HPI HPI Patient is a 23 year old female who presents with above history and complaints of generalized abdomen pain. There is some localization to lower pelvic region. Patient has had history of previous ovarian cysts. Patient has had recent normal. Per. Patient does have complaints of a mild vaginal discharge. No history of STDs. No history of immunosuppression. No history of trauma. No recent travel. No history of bad food. Patient poorly had a normal stool ye sterday. Patient has had tubal ligation. Her male partner has no symptoms suggestive of STD. No history of renal stones. No history of colitis oror inflammatory bowel disorders with her or family members. Review of Systems Review of Systems Constitutional: Denies fever or chills [] Eyes: Denies change in visual acuity, redness, or eye pain [] HENT: Denies nasal congestion or sore throat [] Respiratory: Denies cough or shortness of breath [] Cardiovascular: No additional information not addressed in HPI [] GI: Complaints of generalized abdominal pain, pelvic discomfort and vaginal discharge. Nausea, vomiting, bloody stools or diarrhea [] : Denies dysuria or hematuria [] Musculoskeletal: Denies back pain or joint pain [] Integument: Denies rash or skin lesions [] Neurologic: Denies headache, focal weakness or sensory changes [] Endocrine: Denies polyuria or polydipsia [] All other systems were reviewed and found to be within normal limits, except as documented in this note. Family History Family History Noncontributory Current Medications Current Medications Current Medications Medications (Trade) Dose Ordered Sig/Magdy Start Time Stop Time Status Last Admin Dose Admin Cephalexin HCl (Keflex) 500 mg 1X ONCE 03/18/19 23:30 03/18/19 23:30 DC Famotidine (Pepcid Vial) 20 mg 1X ONCE 03/18/19 19:15 03/18/19 19:18 DC 03/18/19 19:47 20 MG Info (Do NOT chart on this entry -- for MONITORING) 1 each PRN DAILY PRN 03/18/19 21:00 03/18/19 23:26 DC Iohexol (Omnipaque 240 Mg/ml) 50 ml 1X ONCE 03/18/19 21:00 03/18/19 21:01 DC 03/18/19 21:59 50 ML Iohexol (Omnipaque 300 Mg/ml) 75 ml 1X ONCE 03/18/19 21:00 03/18/19 21:01 DC 03/18/19 21:59 75 ML Ketorolac Tromethamine (Toradol 30mg Vial) 30 mg 1X ONCE 03/18/19 22:00 03/18/19 22:01 DC 03/18/19 21:54 30 MG Lactated Ringer's 1,000 ml @ 1,000 mls/hr Q1H 03/18/19 19:12 03/18/19 20:11 DC 03/18/19 19:47 1,000 MLS/HR Magnesium Hydroxide (Milk Of Magnesia) 2,400 mg 1X ONCE 03/18/19 19:15 03/18/19 19:18 DC 03/18/19 19:47 2,400 MG Ondansetron HCl (Zofran) 8 mg 1X ONCE 03/18/19 19:15 03/18/19 19:18 DC 03/18/19 19:47 8 MG Allergies Allergies Allergies Coded Allergies Type Severity Reaction Last Updated Verified No Known Drug Allergies 03/18/19 No Physical Exam Physical Exam Constitutional: Moderate acute distress, non-toxic appearance. [] HENT: Normocephalic, atraumatic, bilateral external ears normal, oropharynx moist, no oral exudates, nose normal. [] Eyes: PERRLA, EOMI, conjunctiva normal, no discharge. [] Neck: Normal range of motion, no tenderness, supple, no stridor. [] Cardiovascular:Heart rate regular rhythm, no murmur [] Lungs & Thorax: Bilateral breath sounds clear to auscultation [] Abdomen: Bowel sounds normal, soft, some generalized abdomen tenderness, some localization to lower pelvic area. No masses, no pulsatile masses. [] Exam shows mild discharge and some right adnexal tenderness. Minimal cervical motion tenderness. Obese. Old surgical scars. Mild rebound to lower pelvic region. Skin: Warm, dry, no erythema, no rash. [] Back: No tenderness, no CVA tenderness. [] Extremities: No tenderness, no cyanosis, no clubbing, ROM intact, no edema. [] No psoas sign. Neurologic: Alert and oriented X 3, normal motor function, normal sensory function, no focal deficits noted. [] Psychologic: Affect anxious , judgement normal, mood normal. [] Current Patient Data Vital Signs Vital Signs Date Time Temp Pulse Resp B/P (MAP) Pulse Ox O2 Delivery O2 Flow Rate FiO2 03/18/19 23:00 92 18 167/92 (117) 98 Room Air 03/18/19 19:05 98.8 Lab Results Laboratory Tests Test 03/18/19 19:05 03/18/19 19:50 Urine Collection Type Unknown Urine Color Yellow Urine Clarity Clear Urine pH 6.5 Urine Specific [place] 1.015 Urine Protein Neg (NEG-TRACE) Urine Glucose (UA) Neg mg/dL (NEG) Urine Ketones (Stick) Neg mg/dL (NEG) Urine Blood Neg (NEG) Urine Nitrite Neg (NEG) Urine Bilirubin Neg (NEG) Urine Urobilinogen Dipstick 0.2 mg/dL (0.2 mg/dL) Urine Leukocyte Esterase Small (NEG) Urine RBC Occ /HPF (0-2) Urine WBC 0 /HPF (0-4) Urine Squamous Epithelial Cells Occ /LPF Urine Bacteria 0 /HPF (0-FEW) Urine Mucus Slight /LPF Urine Test Negative (NEG) Urine Opiates Screen Neg (NEG) Urine Methadone Screen Neg (NEG) Urine Barbiturates Neg (NEG) Urine Phencyclidine Screen Neg (NEG) Urine Amphetamine/Methamphetamine Neg (NEG) Urine Benzodiazepines Screen Neg (NEG) Urine Cocaine Screen Neg (NEG) Urine Cannabinoids Screen Neg (NEG) Urine Ethyl Alcohol Neg (NEG) White Blood Count 13.8 x10^3/uL (4.0-11.0) H Red Blood Count 4.69 x10^6/uL (3.50-5.40) Hemoglobin 13.9 g/dL (12.0-15.5) Hematocrit 42.0 % (36.0-47.0) Mean Corpuscular Volume 90 fL (79-100) Mean Corpuscular Hemoglobin 30 pg (25-35) Mean Corpuscular Hemoglobin Concent 33 g/dL (31-37) Red Cell Distribution Width 15.2 % (11.5-14.5) H Platelet Count 324 x10^3/uL (140-400) Neutrophils (%) (Auto) 55 % (31-73) Lymphocytes (%) (Auto) 34 % (24-48) Monocytes (%) (Auto) 6 % (0-9) Eosinophils (%) (Auto) 5 % (0-3) H Basophils (%) (Auto) 1 % (0-3) Neutrophils # (Auto) 7.6 x10^3uL (1.8-7.7) Lymphocytes # (Auto) 4.6 x10^3/uL (1.0-4.8) Monocytes # (Auto) 0.8 x10^3/uL (0.0-1.1) Eosinophils # (Auto) 0.7 x10^3/uL (0.0-0.7) Basophils # (Auto) 0.1 x10^3/uL (0.0-0.2) Prothrombin Time 9.7 SEC (9.4-11.4) Prothrombin Time INR 1.0 (0.9-1.1) PTT 26 SEC (23-33) Maternal Serum HCG Beta Subunit 1 mIU/mL (0-6) Sodium Level 141 mmol/L (136-145) Potassium Level 4.0 mmol/L (3.5-5.1) Chloride Level 103 mmol/L (98-107) Carbon Dioxide Level 26 mmol/L (21-32) Anion Gap 12 (6-14) Blood Urea Nitrogen 10 mg/dL (7-20) Creatinine 0.8 mg/dL (0.6-1.0) Estimated GFR (Cockcroft-Gault) 106.6 Glucose Level 82 mg/dL (70-99) Calcium Level 9.5 mg/dL (8.5-10.1) Total Bilirubin 0.5 mg/dL (0.2-1.0) Direct Bilirubin 0.1 mg/dL (0.0-0.2) Aspartate Amino Transferase (AST) 12 U/L (15-37) L Alanine Aminotransferase (ALT) 21 U/L (14-59) Alkaline Phosphatase 100 U/L (46-116) Creatine Kinase 75 U/L (26-192) Troponin I Quantitative < 0.017 ng/mL (0-0.055) Total Protein 7.4 g/dL (6.4-8.2) Albumin 3.8 g/dL (3.4-5.0) Amylase Level 69 U/L (25-115) Lipase 143 U/L (73-393) Microbiology 03/18/19 Wet Prep - Final, Complete EKG EKG [] Radiology/Procedures Radiology/Procedures My interpretation acute abdomen shows no acute cardiopulmonary findings. No free air in the diaphragm. Nonspecific bowel gas pattern. Does have stool throughout the colon. CT of abdomen shows enlarged mesenteric adenopathy. No acute surgical processes. Appendix appears to be normal.] See formal report when available. Course & Med Decision Making Course & Med Decision Making Pertinent Labs and Imaging studies reviewed. (See chart for details). Patient remain on clear fluid diet for the next 2 days. Take Tylenol and ibuprofen for pain. Patient follow-up cultures with primary care. Patient use to nasal vaginally every night for 7 days. Patient take Keflex 500 mg 3 times a day. Patient follow-up pending cultures. Patient return if any concerns. Discussed patient persistent of mesenteric adenopathy may need lymph node biopsy. [] Final Impression Final Impression 1. Abdomen Pain[] 2. Mesenteric adenitis 3. Mild leukocytosis 4. Bacterial vaginosis Dragon Disclaimer Dragon Disclaimer This electronic medical record was generated, in whole or in part, using a voice recognition dictation system. Discharge Summary Visit Information Final Diagnosis Problems Medical Problems: (1) Bacterial vaginosis Status: Acute (2) Mesenteric adenitis Status: Acute Brief Hospital Course Allergies Allergies Coded Allergies Type Severity Reaction Last Updated Verified No Known Drug Allergies 03/18/19 No Vital Signs Vital Signs Date Time Temp Pulse Resp B/P (MAP) Pulse Ox O2 Delivery O2 Flow Rate FiO2 03/18/19 23:00 92 18 167/92 (117) 98 Room Air 03/18/19 19:05 98.8 Lab Results Laboratory Tests Test 03/18/19 19:05 03/18/19 19:50 Urine Collection Type Unknown Urine Color Yellow Urine Clarity Clear Urine pH 6.5 Urine Specific [place] 1.015 Urine Protein Neg (NEG-TRACE) Urine Glucose (UA) Neg mg/dL (NEG) Urine Ketones (Stick) Neg mg/dL (NEG) Urine Blood Neg (NEG) Urine Nitrite Neg (NEG) Urine Bilirubin Neg (NEG) Urine Urobilinogen Dipstick 0.2 mg/dL (0.2 mg/dL) Urine Leukocyte Esterase Small (NEG) Urine RBC Occ /HPF (0-2) Urine WBC 0 /HPF (0-4) Urine Squamous Epithelial Cells Occ /LPF Urine Bacteria 0 /HPF (0-FEW) Urine Mucus Slight /LPF Urine Test Negative (NEG) Urine Opiates Screen Neg (NEG) Urine Methadone Screen Neg (NEG) Urine Barbiturates Neg (NEG) Urine Phencyclidine Screen Neg (NEG) Urine Amphetamine/Methamphetamine Neg (NEG) Urine Benzodiazepines Screen Neg (NEG) Urine Cocaine Screen Neg (NEG) Urine Cannabinoids Screen Neg (NEG) Urine Ethyl Alcohol Neg (NEG) White Blood Count 13.8 x10^3/uL (4.0-11.0) Red Blood Count 4.69 x10^6/uL (3.50-5.40) Hemoglobin 13.9 g/dL (12.0-15.5) Hematocrit 42.0 % (36.0-47.0) Mean Corpuscular Volume 90 fL (79-100) Mean Corpuscular Hemoglobin 30 pg (25-35) Mean Corpuscular Hemoglobin Concent 33 g/dL (31-37) Red Cell Distribution Width 15.2 % (11.5-14.5) Platelet Count 324 x10^3/uL (140-400) Neutrophils (%) (Auto) 55 % (31-73) Lymphocytes (%) (Auto) 34 % (24-48) Monocytes (%) (Auto) 6 % (0-9) Eosinophils (%) (Auto) 5 % (0-3) Basophils (%) (Auto) 1 % (0-3) Neutrophils # (Auto) 7.6 x10^3uL (1.8-7.7) Lymphocytes # (Auto) 4.6 x10^3/uL (1.0-4.8) Monocytes # (Auto) 0.8 x10^3/uL (0.0-1.1) Eosinophils # (Auto) 0.7 x10^3/uL (0.0-0.7) Basophils # (Auto) 0.1 x10^3/uL (0.0-0.2) Prothrombin Time 9.7 SEC (9.4-11.4) Prothromb Time International Ratio 1.0 (0.9-1.1) Activated Partial Thromboplast Time 26 SEC (23-33) Maternal Serum HCG Beta Subunit 1 mIU/mL (0-6) Sodium Level 141 mmol/L (136-145) Potassium Level 4.0 mmol/L (3.5-5.1) Chloride Level 103 mmol/L (98-107) Carbon Dioxide Level 26 mmol/L (21-32) Anion Gap 12 (6-14) Blood Urea Nitrogen 10 mg/dL (7-20) Creatinine 0.8 mg/dL (0.6-1.0) Estimated GFR (Cockcroft-Gault) 106.6 Glucose Level 82 mg/dL (70-99) Calcium Level 9.5 mg/dL (8.5-10.1) Total Bilirubin 0.5 mg/dL (0.2-1.0) Direct Bilirubin 0.1 mg/dL (0.0-0.2) Aspartate Amino Transf (AST/SGOT) 12 U/L (15-37) Alanine Aminotransferase (ALT/SGPT) 21 U/L (14-59) Alkaline Phosphatase 100 U/L (46-116) Creatine Kinase 75 U/L (26-192) Troponin I Quantitative < 0.017 ng/mL (0-0.055) Total Protein 7.4 g/dL (6.4-8.2) Albumin 3.8 g/dL (3.4-5.0) Amylase Level 69 U/L (25-115) Lipase 143 U/L (73-393) Brief Hospital Course Ms. Bennett is a 23 old female who presented with abdomen pain and mesenteric adenitis. Patient FOUND to have bacterial vaginosis Discharge Information Condition at Discharge: Improved, Stable Disposition/Orders: D/C to Home Dischare Medications Current Medications Lactated Ringer's 1,000 ml @ 1,000 mls/hr Q1H IV Last administered on 03/18/19at 19:47; Admin Dose 1,000 MLS/HR; Start 03/18/19 at 19:12; Stop 03/18/19 at 20:11; Status DC Ondansetron HCl (Zofran) 8 mg 1X ONCE IV Last administered on 03/18/19at 19:47; Admin Dose 8 MG; Start 03/18/19 at 19:15; Stop 03/18/19 at 19:18; Status DC Famotidine (Pepcid Vial) 20 mg 1X ONCE IVP Last administered on 03/18/19at 19 :47; Admin Dose 20 MG; Start 03/18/19 at 19:15; Stop 03/18/19 at 19:18; Status DC Magnesium Hydroxide (Milk Of Magnesia) 2,400 mg 1X ONCE PO Last administered on 03/18/19at 19:47; Admin Dose 2,400 MG; Start 03/18/19 at 19:15; Stop 03/18/19 at 19:18; Status DC Ketorolac Tromethamine (Toradol 30mg Vial) 30 mg 1X ONCE IV ; Start 03/18/19 at 21:00; Stop 03/18/19 at 21:01; Status DC Iohexol (Omnipaque 240 Mg/ml) 50 ml 1X ONCE PO Last administered on 03/18/19at 21:59; Admin Dose 50 ML; Start 03/18/19 at 21:00; Stop 03/18/19 at 21:01; Status DC Iohexol (Omnipaque 300 Mg/ml) 75 ml 1X ONCE IV Last administered on 03/18/19at 21:59; Admin Dose 75 ML; Start 03/18/19 at 21:00; Stop 03/18/19 at 21:01; Status DC Info (Do NOT chart on this entry -- for MONITORING) 1 each PRN DAILY PRN MC SEE COMMENTS; Start 03/18/19 at 21:00; Stop 03/18/19 at 23:26; Status DC Ketorolac Tromethamine (Toradol 30mg Vial) 30 mg 1X ONCE IV Last administered on 03/18/19at 21:54; Admin Dose 30 MG; Start 03/18/19 at 22:00; Stop 03/18/19 at 22:01; Status DC Cephalexin HCl (Keflex) 500 mg 1X ONCE PO ; Start 03/18/19 at 23:30; Stop 03/18/19 at 23:30; Status DC Active Scripts Active Keflex (Cephalexin) 500 Mg Capsule 500 Mg PO TID 10 Days Metrogel-Vaginal (Metronidazole) 70 Gm Gel.w.appl 1 Appful VG QHS Promethazine-Dm Syrup (D-Methorphan Hb/Prometh Hcl) 118 Ml Syrup 5 Ml PO PRN Q4HRS Tessalon Perle (Benzonatate) 100 Mg Capsule 1 Cap PO TID Naprosyn (Naproxen) 500 Mg Tablet 500 Mg PO BID Amoxicillin 500 Mg Capsule 1 Cap PO TID Adult Glycerin (Glycerin) 1 Each Supp.rect 1 Each RC DAILY Dicyclomine Hcl 20 Mg Tablet 1 Tab PO QID Zofran Odt (Ondansetron) 4 Mg Tab.rapdis 4 Mg PO Q6HRS [place] 5-325 Tablet (Hydrocodone Bit/Acetaminophen) 1 Each Tablet 1-2 Tab PO Q4- 6HRS PRN Reported No Known Medications Prior To Admisstion (Info) Each 1 Each Dragon Disclaimer This chart was dictated in whole or in part using Voice Recognition software in a busy, high-work load, and often noisy Emergency Department environment. It may contain unintended and wholly unrecognized errors or omissions. FERNANDO SALEH MD March 18, 2019 20:21
[2019-03-18 20:31] LABS: ALBUMIN 3.8 g/dL (3.4-5.0); CALCIUM 9.5 mg/dL (8.5-10.1); CREATININE 0.8 mg/dL (0.6-1.0); DIRECT BILIRUBIN 0.1 mg/dL (0.0-0.2); GFR 106.6; TOTAL BILIRUBIN 0.5 mg/dL (0.2-1.0); TOTAL PROTEIN 7.4 g/dL (6.4-8.2)
[2019-03-18] MEDS: KETOROLAC 30 MG/ML VIAL. IV ONE ×2 (21:00→21:54)
[2019-03-18] MEDS ORDERED: CONTRAST GIVEN MC PRN (21:00)
--- NOTE | 2019-03-18 21:33 | EKG ---
[address] [address] Test Date: 2019-03-18 Test Time: 19:28:15 Pat Name: MAGGIE KEE Department: Room: Gender: F [employer]: : 1995 Requested By: FERNANDO SALEH Order Number: [id number] Reading MD: Hernesto Cooper Measurements Intervals [place] Rate: 87 P: 18 MO: 154 QRS: -11 QRSD: 88 T: 0 QT: 370 QTc: 451 Interpretive Statements SINUS RHYTHM LEFTWARD AXIS T ABNORMALITY IN ANTEROSEPTAL LEADS Electronically Signed On 03-21-2019 16:06:28 CDT by Hernesto Cooper
[2019-03-18] MEDS: IOHEXOL 240 MG/ML 50ML VIAL. PO ONE (21:59)
[2019-03-18] MEDS: IOHEXOL 300 MG/ML 75 ML VIAL. IV ONE (21:59)
[2019-03-18 23:00] VITALS: BP 167/92
--- NOTE | 2019-03-18 23:00 | RAD ---
CT SCAN OF THE ABDOMEN AND PELVIS WITH IV CONTRAST. History: Lower abdominal and pelvic pain Comparison:None. Procedure: Contiguous axial images of the abdomen and pelvis were performed after the administration of 75 cc of Isovue 370 IV contrast and oral contrast. CT Abdomen with contrast: Findings: Liver: Unremarkable Spleen: Unremarkable Pancreas: Unremarkable Adrenal Glands: Unremarkable Kidneys: Unremarkable There are numerous mild to moderately enlarged mesenteric lymph nodes in the right lower quadrant. There is no free air. There is no free fluid. CT Pelvis with Contrast: Findings: The urinary bladder appears normal. There is no free fluid. There is no lymphadenopathy. The appendix is normal. Impression: Mild mesenteric lymphadenopathy in the right lower quadrant likely lymphadenitis. PQRS Compliance Statement: One or more of the following individualized dose reduction techniques were utilized for this examination: 1. Automated exposure control 2. Adjustment of the mA and/or kV according to patient size 3. Use of iterative reconstruction technique Electronically signed by: Justus Currie III, MD (03/18/2019 10:57 PM) [facility]
[2019-03-18] MEDS ORDERED: METR70GE14 VG (23:20)
[2019-03-18] MEDS ORDERED: CEPH-264 PO (23:21)
[2019-03-18] MEDS: CEPHALEXIN 250 MG CAPSULE PO ONE (23:25)
--- NOTE | 2019-03-19 08:28 | RAD ---
EXAM: Frontal view of the chest, AP views of the abdomen in upright and supine positions. CLINICAL INDICATION: Abdominal pain COMPARISON: None. FINDINGS and IMPRESSION: The heart is not enlarged. Mediastinal and hilar contours are normal. No focal parenchymal airspace opacity. No pleural effusion or pneumothorax. No abnormal small or large bowel dilatation. Moderate colonic stool content. No abnormal soft tissue mass effect. No suspicious calcifications are seen. No free intraperitoneal gas. Electronically signed by: Frandy Vizcarra MD (03/19/2019 8:25 AM) [id number]
[2019-03-20 14:08] LABS: CHLAMYDIA PROBE Negative (Negative)
== END 2019-03-18 23:25 | disposition home or self-care (01) ==
LOC: ER 18:56
DX: I88.0 Nonspecific mesenteric lymphadenitis (principal); N76.0 Acute vaginitis; B96.89 Other specified bacterial agents as the cause of diseases classified elsewhere; D72.829 Elevated white blood cell count, unspecified; R11.2 Nausea with vomiting, unspecified; R19.7 Diarrhea, unspecified; I10 Essential (primary) hypertension; Z98.51 Tubal ligation status
CPT/HCPCS: 36415; 74022; 74177; 80048; 80076; 80307; 81001; 81025; 82150; 82550; 83690; 84484; 84702; 85025; 85610; 85730; 86592; 86705; 86709; 86803; 87086; 87340; 87480; 87491; 87510; 87591; 87660; 93005; 96361; 96374; 96375; 99285; J1885; J2405; J3490; J7120; Q0111; Q9966; Q9967

== ENCOUNTER 2019-05-14 15:38 | Emergency (ER) | payer SELFPAY ==
[~2019-05-14] VITALS: Ht 167.6 cm; Wt 101.8 kg
[~2019-05-14 15:38] MED LIST changes: +CEPH-264 PO; +METR70GE14 VG
[2019-05-14] MEDS ORDERED: ACETAMINOPHEN 500 MG TABLET PO ONE (16:30)
--- NOTE | 2019-05-14 17:25 | RAD ---
CT HEAD AND MAXILLOFACIAL WO Indication: Trauma to forehead and left orbit yesterday. Blurred left vision. Exposure: One or more of the following individualized dose reduction techniques were utilized for this examination: 1. Automated exposure control 2. Adjustment of the mA and/or kV according to patient size 3. Use of iterative reconstruction technique. Technique: Standard imaging without intravenous contrast. Head: Comparison with 04/12/2018. No evidence of acute intracranial hemorrhage, mass effect, midline shift or abnormal extra-axial fluid collection. Andrade-white matter distinction is intact. The partially visualized orbits appear unremarkable. No evidence of a large scalp hematoma. Moderate to severe mucosal thickening of the ethmoid sinuses, more advanced than what was seen previously. There is also left and right frontal sinus mucosal thickening which has developed. No evidence of a depressed skull fracture. IMPRESSION: Paranasal sinus disease. No evidence of acute intracranial hemorrhage or mass effect. Facial bones: No evidence of displaced nasal bone fracture. No evidence of orbital floor fracture. No acute fracture is identified. Severe mucosal thickening of the ethmoid sinuses. Moderate frontal sinus mucosal thickening. The maxillary sinuses demonstrate mild mucosal thickening inferiorly. No fluid levels are identified. The ostiomeatal units appear occluded by soft tissue bilaterally. Temporomandibular joints and mandible are intact. The partially seen upper cervical spine appears intact. IMPRESSION: No evidence of acute fracture. IMPRESSION: 1. No evidence of acute fracture. 2. Paranasal sinus disease. Electronically signed by: Delvis Rossi MD (05/14/2019 5:22 PM) [facility]
[2019-05-14 17:50] VITALS: BP 136/65
--- NOTE | 2019-05-14 17:57 | PHYS DOC ---
Past History Past Medical History: Hypertension Past Surgical History: Tubal ligation Alcohol Use: None Drug Use: None Adult General Chief Complaint Chief Complaint: BLURRED/DOUBLE VISION [facility] Patient is a 23 yo f p/w closed head injury [age] year old head hit her on the left forehead above eye nex to nose three days ago severe pain worse with palpation nausea just doesnt feel right hurts to look up. sharp no relief with time Review of Systems Review of Systems Constitutional: Denies fever or chills [] Eyes: HENT: occ sinus congestion no purulence no fever. Respiratory: Denies cough or shortness of breath [] Cardiovascular: No additional information not addressed in HPI [] GI: Denies abdominal pain, nausea, vomiting, bloody stools or diarrhea [] : Denies dysuria or hematuria [] Musculoskeletal: Denies back pain or joint pain [] Integument: Denies rash or skin lesions [] Endocrine: Denies polyuria or polydipsia [] All other systems were reviewed and found to be within normal limits, except as documented in this note. Current Medications Current Medications Current Medications Medications (Trade) Dose Ordered Sig/Magdy Start Time Stop Time Status Last Admin Dose Admin Acetaminophen (Tylenol) 1,000 mg 1X ONCE 05/14/19 16:30 05/14/19 16:31 DC 05/14/19 16:29 1,000 MG Allergies Allergies Allergies Coded Allergies Type Severity Reaction Last Updated Verified No Known Drug Allergies 05/14/19 No Physical Exam Physical Exam Constitutional: Well developed, well nourished, no acute distress, non-toxic appearance. [] HENT: Normocephalic, atraumatic, bilateral external ears normal, oropharynx moist, no oral exudates, nose normal. [] Eyes: PERRLA, EOMI, conjunctiva normal, no discharge. [] Neck: Normal range of motion, no tenderness, supple, no stridor. [] Cardiovascular:Heart rate regular rhythm, no murmur [] Lungs & Thorax: Bilateral breath sounds clear to auscultation [] Abdomen: Bowel sounds normal, soft, no tenderness, no masses, no pulsatile masses. [] Skin: Warm, dry, no erythema, no rash. [] Back: No tenderness, no CVA tenderness. [] Extremities: No tenderness, no cyanosis, no clubbing, ROM intact, no edema. [] Neurologic: Alert and oriented X 3, normal motor function, normal sensory function, no focal deficits noted. [] Psychologic: Affect normal, judgement normal, mood normal. [] Current Patient Data Vital Signs Vital Signs Date Time Temp Pulse Resp B/P (MAP) Pulse Ox O2 Delivery O2 Flow Rate FiO2 05/14/19 16:05 98.7 89 16 100 Room Air Lab Results Laboratory Tests Test 05/14/19 16:45 POC Urine HCG, Qualitative hcg negative (Negative) EKG EKG [] Radiology/Procedures Radiology/Procedures [] Impressions: IMPRESSION: 1. No evidence of acute fracture. 2. Paranasal sinus disease. Electronically signed by: Delvis Rossi MD (05/14/2019 5:22 PM) [facility] DICTATED AND SIGNED BY: DELVIS ROSSI MD DATE: 05/14/19 172 CC: MARISOL MALONE MD; PCP,NO ~ Course & Med Decision Making Course & Med Decision Making Pertinent Labs and Imaging studies reviewed. (See chart for details) []pt does not hae symptoms of acute sinusitis may have some allergic disedase counseled on otc agents for this no fx or ich mild concussive sypmtoms. reassurance provided Dragon Disclaimer Dragon Disclaimer This electronic medical record was generated, in whole or in part, using a voice recognition dictation system. Departure Departure: Impression: Primary Impression: Head injury Disposition: 01 HOME, SELF-CARE Condition: STABLE Referrals: PCP,NO (PCP) Patient Instructions: Head Injury, Adult, [id number] MARISOL MALONE MD May 14, 2019 17:57
== END 2019-05-14 17:50 | disposition home or self-care (01) ==
LOC: ER 15:38
DX: S09.8XXA Other specified injuries of head, initial encounter (principal); I10 Essential (primary) hypertension; J34.89 Other specified disorders of nose and nasal sinuses; W22.8XXA Striking against or struck by other objects, initial encounter; Y93.89 Activity, other specified; Y92.89 Other specified places as the place of occurrence of the external cause; Y99.8 Other external cause status
CPT/HCPCS: 70450; 70486; 81025; 99284-25

== ENCOUNTER 2020-02-09 20:37 | Emergency (ER) | payer SELFPAY ==
[~2020-02-09] VITALS: Ht 167.6 cm; Wt 108.1 kg
[~2020-02-09 20:37] MED LIST changes: -D-ME118S2 PO; +PROM118S9 PO
--- NOTE | 2020-02-09 20:39 | PHYS DOC ---
Past History Past Medical History: Hypertension Past Surgical History: Tubal ligation Alcohol Use: None Drug Use: None Adult General Chief Complaint Chief Complaint: ".. I hurting in my Rt. jaw for a week..now it is so bad .. I am weak all over... I seen a dentist.. .and though everything was okay.. but I have a follow up apt... this next week..."... I hurt so bad... I am weak and can't walk..." HPI HPI Patient is a 24 year old female who presents with above hx and complaints of rt jaw pain. Patient states the pain is so severe that she has overall body weakness and fatigue. No history of immunosuppression or HIV. Did not get a flu vaccination this season. Patient has been on amoxicillin last 2 days prescribed by her dentist. Patient rates her pain 10 out of 10. No pointing abscesses appreciated. Does have tenderness of TM J area and over upper Rt neck. . Does complain of some pain in neck. No bruits appreciated in right carotid. Pt. follows with Dr. Mojica at [facility]. Review of Systems Review of Systems Constitutional: Denies fever or chills [] Eyes: Denies change in visual acuity, redness, or eye pain [] HENT: Denies nasal congestion or sore throat []complaints of right TMJ and neck pain Respiratory: Denies cough or shortness of breath [] Cardiovascular: No additional information not addressed in HPI [] GI: Denies abdominal pain, nausea, vomiting, bloody stools or diarrhea [] : Denies dysuria or hematuria [] Musculoskeletal: Denies back pain or joint pain [] Integument: Denies rash or skin lesions [] Neurologic: Denies headache, focal weakness or sensory changes [] Endocrine: Denies polyuria or polydipsia [] All other systems were reviewed and found to be within normal limits, except as documented in this note. Family History Family History Noncontributory Current Medications Current Medications See nursing for home meds Allergies Allergies Allergies Coded Allergies Type Severity Reaction Last Updated Verified No Known Drug Allergies 05/14/19 No Physical Exam Physical Exam Constitutional: Moderate acute distress, non-toxic appearance. [] HENT: Normocephalic, atraumatic, bilateral external ears normal, oropharynx moist, no oral exudates, nose normal. No pointing abscesses appreciated. No trismus. Eyes: PERRLA, EOMI, conjunctiva normal, no discharge. [] Neck: Normal range of motion, no tenderness, supple, no stridor. [] Cardiovascular:Heart rate regular rhythm, no murmur [] Lungs & Thorax: Bilateral breath sounds equal apex with few scattered wheezes auscultation [] Abdomen: Bowel sounds normal, soft, no tenderness, no masses, no pulsatile masses. Obese. Old surgical scars Skin: Warm, dry, no erythema, no rash. [] Back: No tenderness, no CVA tenderness. [] Extremities: No tenderness, no cyanosis, no clubbing, ROM intact, no edema. [] Plaints of generalized weakness Neurologic: Alert and oriented X 3, normal motor function, normal sensory function, no focal deficits noted. [] Psychologic: Affect anxious, judgement normal, mood normal. [] EKG EKG My interpretation EKG shows a sinus rhythm at 82 bpm. There is leftward axis. There is nonspecific T-wave changes. But no findings acute STEMI of contralateral changes.[] Radiology/Procedures Radiology/Procedures [][place] [address] IMAGING REPORT Signed PATIENT: MAGGIE KEE ACCOUNT: [id number] : 1995 LOCATION: ER AGE: 24 SEX: F EXAM STATUS: REG ER ORD. PHYSICIAN: FERNANDO SALEH MD REASON: jaw pain , weakness PROCEDURE: CT HEAD AND MAXILLOFACIAL WO CT scan of the head without contrast 02/09/2020 Clinical History: Weakness. Head pain.. Technique: Unenhanced, contiguous, 5 mm axial sections were obtained through the head. One or more of the following individualized dose reduction techniques were utilized for this study: 1. Automated exposure control. 2. Adjustment of the mA and/or kV according to patient size. 3. Use of iterative reconstruction technique. Findings: The ventricles and sulci are within normal limits in size and configuration. No area of abnormal attenuation is seen involving brain parenchyma. No extra-axial fluid collection is noted. No skull fracture is seen. Impression: No acute intracranial abnormality is seen. CT scan of the facial bones without contrast 02/09/2020 Clinical history: Jaw pain. Technique: Unenhanced, contiguous, 0.625 mm axial sections were obtained through the facial bones and orbits. 3 mm reconstructed sagittal, axial and coronal images were obtained. One or more of the following individualized dose reduction techniques were utilized for this study: 1. Automated exposure control. 2. Adjustment of the mA and/or kV according to patient size. 3. Use of iterative reconstruction technique. Findings: Mild to moderate mucosal thickening is involving left frontal sinus. Moderate mucosal thickening is seen scattered throughout ethmoid air cells bilaterally. Mild mucosal thickening is seen involving both maxillary sinuses. A 2 cm mucous retention cyst is seen involving the left maxillary sinus. No air-fluid level is seen. The ostiomeatal units are patent bilaterally. The sphenoid sinus is clear. The mastoid air cells and middle ear cavities are well aerated and are clear. No facial bone fractures seen. Both orbits are intact. Several caries are seen scattered throughout the molars of the lower teeth. Impression: Mild to moderate mucosal thickening is seen throughout the paranasal sinuses as discussed above. No acute abnormality is seen. Electronically signed by: Faisal Riley MD (02/09/2020 10:08 PM) [id number] Course & Med Decision Making Course & Med Decision Making Pertinent Labs and Imaging studies reviewed. (See chart for details) 10 unit antibiotics as directed by your tenderness. Take Tylenol and ibuprofen for pain. Follow-up primary care. Return if any concerns. Continue ampicillin as previous directed by Dentist. Use Flonase 2 sprays daily at night. . Normal saline rinses to nose. Review ED work up and pending labs with primary. Impression: 1. Rt Mandible Pain 2. Ching Sinusitis 3. Dental Pain [] Dragon Disclaimer Dragon Disclaimer This electronic medical record was generated, in whole or in part, using a voice recognition dictation system. Departure Departure: Disposition: 01 HOME/RESIDENCE PRIOR TO ADM Condition: STABLE Referrals: PCP,NO (PCP) Amie Disclaimer This chart was dictated in whole or in part using Voice Recognition software in a busy, high-work load, and often noisy Emergency Department environment. It may contain unintended and wholly unrecognized errors or omissions. FERNANDO SALEH MD Feb 09, 2020 20:39
[2020-02-09] MEDS ORDERED: KETOROLAC 60 MG/2 ML VIAL. IM ONE (21:30)
[2020-02-09 21:34] LABS: BASO # 0.1 x10^3/uL (0.0-0.2); BASO % 1 % (0-3); EOS # 0.6 x10^3/uL (0.0-0.7); EOS % 4 % (0-3); HEMATOCRIT 41.4 % (36.0-47.0); HEMOGLOBIN 13.5 g/dL (12.0-15.5); LYMPH # 4.1 x10^3/uL (1.0-4.8); LYMPH % 26 % (24-48); MEAN CORPUSCULAR HEMOGLOBIN 30 pg (25-35); MEAN CORPUSCULAR HGB CONC 33 g/dL (31-37); MEAN CORPUSCULAR VOLUME 91 fL (79-100); MONO # 0.9 x10^3/uL (0.0-1.1); MONO % 6 % (0-9); NEUT # 9.9 x10^3uL (1.8-7.7); NEUT % 63 % (31-73); PLATELET COUNT 301 x10^3/uL (140-400); RED BLOOD COUNT 4.53 x10^6/uL (3.50-5.40); RED CELL DISTRIBUTION WIDTH 14.4 % (11.5-14.5); WHITE BLOOD COUNT 15.7 x10^3/uL (4.0-11.0)
[2020-02-09 21:41] LABS: BARBITURATES NEG (NEG); BENZODIAZEPINES NEG (NEG); CANNABINOIDS NEG (NEG); COCAINE NEG (NEG); METHADONE NEG (NEG); OPIATES NEG (NEG); PHENCYCLIDINE NEG (NEG)
[2020-02-09 21:43] LABS: AMPHETAMINE/METHAMPHETAMINE NEG (NEG)
[2020-02-09 21:45] LABS: POTASSIUM 3.7 mmol/L (3.5-5.1)
[2020-02-09 21:57] LABS: BACTERIA,URINE 0 /HPF (0-FEW); BILIRUBIN,URINE NEG (NEG); CLARITY,URINE CLEAR; COLOR,URINE YELLOW; GLUCOSE,URINE NEG (NEG); NITRITE,URINE NEG (NEG); RBC,URINE 0 /HPF (0-2); SQUAMOUS EPITHELIAL CELL,UR OCC /LPF
--- NOTE | 2020-02-09 22:10 | RAD ---
CT scan of the head without contrast 02/09/2020 Clinical History: Weakness. Head pain.. Technique: Unenhanced, contiguous, 5 mm axial sections were obtained through the head. One or more of the following individualized dose reduction techniques were utilized for this study: 1. Automated exposure control. 2. Adjustment of the mA and/or kV according to patient size. 3. Use of iterative reconstruction technique. Findings: The ventricles and sulci are within normal limits in size and configuration. No area of abnormal attenuation is seen involving brain parenchyma. No extra-axial fluid collection is noted. No skull fracture is seen. Impression: No acute intracranial abnormality is seen. CT scan of the facial bones without contrast 02/09/2020 Clinical history: Jaw pain. Technique: Unenhanced, contiguous, 0.625 mm axial sections were obtained through the facial bones and orbits. 3 mm reconstructed sagittal, axial and coronal images were obtained. One or more of the following individualized dose reduction techniques were utilized for this study: 1. Automated exposure control. 2. Adjustment of the mA and/or kV according to patient size. 3. Use of iterative reconstruction technique. Findings: Mild to moderate mucosal thickening is involving left frontal sinus. Moderate mucosal thickening is seen scattered throughout ethmoid air cells bilaterally. Mild mucosal thickening is seen involving both maxillary sinuses. A 2 cm mucous retention cyst is seen involving the left maxillary sinus. No air-fluid level is seen. The ostiomeatal units are patent bilaterally. The sphenoid sinus is clear. The mastoid air cells and middle ear cavities are well aerated and are clear. No facial bone fractures seen. Both orbits are intact. Several caries are seen scattered throughout the molars of the lower teeth. Impression: Mild to moderate mucosal thickening is seen throughout the paranasal sinuses as discussed above. No acute abnormality is seen. Electronically signed by: Faisal Riley MD (02/09/2020 10:08 PM) [id number]
--- NOTE | 2020-02-09 22:14 | RAD ---
CT scan of the neck without contrast 02/01/2020 CLINICAL HISTORY: Right-sided neck pain. TECHNIQUE: Unenhanced, contiguous, 3 mm axial sections were obtained through the neck. One or more of the following individualized dose reduction techniques were utilized for this study: 1. Automated exposure control. 2. Adjustment of the mA and/or kV according to patient size. 3. Use of iterative reconstruction technique. FINDINGS: Mild to moderate mucosal thickening is seen involving the left frontal sinus. Moderate mucosal thickening is seen throughout the ethmoid air cells bilaterally. Mild mucosal thickening is seen involving both maxillary sinuses. The mucosal structures of the nasal pharynx, oral pharynx, hypopharynx and larynx are within normal limits. The parotid and submandibular glands are within normal limits. The thyroid gland is within normal limits. No abnormal soft tissue mass or fluid collection is seen involving the neck. Reactive cervical lymph nodes are seen scattered throughout the neck. The osseous structures are grossly intact. IMPRESSION: No acute abnormality is seen. Electronically signed by: Faisal Riley MD (02/09/2020 10:11 PM) [id number]
[2020-02-09 22:22] LABS: % EOS 2 % (0-5); % LYMPHS 31 % (24-48); % MONOS 5 % (0-10); % SEGS 62 % (35-66)
[2020-02-09 22:24] LABS: ANISOCYTOSIS SLIGHT; PLT ESTIMATE ADEQUATE (ADEQUATE)
[2020-02-09 22:40] VITALS: BP 160/100
[2020-02-09 22:59] LABS: SEDIMENTATION RATE 32 (0-25)
--- NOTE | 2020-02-10 03:16 | EKG ---
[address] [address] Test Date: 2020-02-09 Test Time: 21:39:16 Pat Name: MAGGIE KEE Department: Room: Gender: F [employer]: : 1995 Requested By: FERNANDO SALEH Order Number: [id number] Reading MD: Measurements Intervals [place] Rate: 82 P: 23 [place]: 158 QRS: -16 QRSD: 88 T: 2 QT: 368 QTc: 433 Interpretive Statements SINUS RHYTHM LEFTWARD AXIS T ABNORMALITY IN ANTEROSEPTAL LEADS ABNORMAL ECG RI6.01 No previous ECG available for comparison
== END 2020-02-09 22:40 | disposition home or self-care (01) ==
LOC: ER 20:37
DX: R68.84 Jaw pain (principal); J32.4 Chronic pansinusitis; K08.89 Other specified disorders of teeth and supporting structures; M54.2 Cervicalgia; R53.1 Weakness; I10 Essential (primary) hypertension
CPT/HCPCS: 36415; 70450; 70486; 70490; 80051; 80307; 81001; 82550; 84484; 85007; 85025; 85651; 87086; 93005; 96372; 99285; J1885

== ENCOUNTER 2021-07-19 19:43 | Emergency (ER) | payer OTHER ==
[~2021-07-19] VITALS: Ht 167.6 cm; Wt 116.0 kg
[~2021-07-19 19:43] MED LIST changes: +PROM118S10 PO; -PROM118S9 PO
--- NOTE | 2021-07-19 19:53 | PHYS DOC ---
Past History Past Medical History: Hypertension Past Surgical History: Tubal ligation Alcohol Use: None Drug Use: None Adult General HPI HPI Patient is a 26-year-old female who presents with a chief complaint of right flank and right lower quadrant pain for the last couple of days. States it started 2 days ago, is intermittent, 6 out of 10 at its worst, sharp in nature, associated with nausea but no vomiting and started with some dysuria today. Denies any history of STIs, vaginal discharge or bleeding or genital lesions. Denies any recent traumas, travels, fevers, chest pain, shortness of breath, hematuria, diarrhea or blood in the stool. Abdominal surgeries. Review of Systems Review of Systems Review of systems otherwise unremarkable except noted in HPI Allergies Allergies Allergies Coded Allergies Type Severity Reaction Last Updated Verified No Known Drug Allergies 05/14/19 No Physical Exam Physical Exam Constitutional: Well developed, well nourished, no acute distress, non-toxic appearance. [] HENT: Normocephalic, atraumatic, bilateral external ears normal, oropharynx moist, no oral exudates, nose normal. [] Eyes: conjunctiva normal, no discharge. [] Neck: Normal range of motion, no tenderness, supple, no stridor. [] Cardiovascular:Heart rate regular rhythm, no murmur [] Lungs & Thorax: Bilateral breath sounds clear to auscultation [] Abdomen: soft, right lower quadrant tenderness, no masses, no pulsatile masses. [] Skin: Warm, dry, no erythema, no rash. [] Back: no CVA tenderness. [] Extremities: No tenderness, no cyanosis, no clubbing, ROM intact, no edema. [] Neurologic: Alert and oriented X 3, no focal deficits noted. [] Psychologic: Affect normal, judgement normal, mood normal. [] EKG EKG [] Radiology/Procedures Radiology/Procedures []INDINGS: Heart size is normal. No pericardial effusion. Visualized lung bases are clear. No pleural effusion. Evaluation of the solid organs is limited secondary to noncontrast technique. Liver, spleen, pancreas, gallbladder and adrenals are unremarkable. No perinephric inflammation or hydronephrosis. No renal or ureteral calculi are identified. Bladder is partially decompressed not well evaluated. Uterus is not enlarged. No abnormal adnexal mass. Large and small bowel are unremarkable. Appendix is normal. No free intra- abdominal air or fluid. No obstruction. Abdominal aorta has normal course and caliber. No enlarged abdominal lymph nodes are identified. No suspicious osseous lesions or acute fractures. IMPRESSION: No renal or ureteral calculi. No evidence for obstructive uropathy. Electronically signed by: Kevin Butler MD (07/19/2021 9:07 PM) [facility] Heart Score C/O Chest Pain: No Risk Factors: Risk Factors: DM, Current or recent (<one month) smoker, HTN, HLP, family history of CAD, obesity. Risk Scores: Risk Factors: DM, Current or recent (<one month) smoker, HTN, HLP, family history of CAD, obesity. Course & Med Decision Making Course & Med Decision Making Patient is a 26-year-old female who presents with right flank and right lower quadrant pain associated with nausea and dysuria Vital signs notable for hypertension. Physical exam noted above. Patient placed on monitor with IV access established. Given pain and nausea medicine as well as fluid. Patient states she has had hypertension for quite some time but has not been to the doctor and started on any medications. States she is, go see her primary care physician over the next couple of weeks to discuss need for medication and did want to start any today. Urinalysis suggestive of UTI given dysuria. Wet prep notable for bacterial vaginosis. Started on Keflex and Flagyl in the ED. Discussed all findings with patient. Advised to follow-up with primary care so she can to set up a follow- up visit for reevaluation. Gave return precautions to the ED. Patient grateful, verbalized understanding and agreed with plan of discharge. [] Dragon Disclaimer Dragon Disclaimer This electronic medical record was generated, in whole or in part, using a voice recognition dictation system. Departure Departure: Impression: Primary Impression: Abdominal pain Additional Impressions: Bacterial vaginosis Urinary tract infection Disposition: HOME / SELF CARE / HOMELESS Condition: GOOD Referrals: PCP,LEON (PCP) LARA AMANDA Patient Instructions: Bacterial Vaginosis, Urinary Tract Infection Additional Instructions: Thank you for coming into the emergency department today and allowing us to take care of you. Please read the attached information carefully to go back over things we discussed. Please take all your antibiotics as prescribed. Please do not drink alcohol with these as you can have a severe reaction. Please call your primary care physician first thing in the morning to update on your ED visit and set up a follow-up visit as soon as you can. Scripts Metronidazole (METRONIDAZOLE) 500 Mg Tablet 1 TAB PO BID for BV for 7 Days, #13 TAB 0 Refills Prov: GUNNER MCNAIR MD 07/19/21 Cephalexin (KEFLEX) 500 Mg Capsule 1 CAP PO BID for UTI for 5 Days, #10 CAP Prov: GUNNER MCNAIR MD 07/19/21 Problem Qualifiers GUNNER MCNAIR MD Jul 19, 2021 19:53
[2021-07-19 20:25] LABS: BASO # 0.2 x10^3/uL (0.0-0.2); BASO % 1 % (0-3); EOS # 0.9 x10^3/uL (0.0-0.7); EOS % 5 % (0-3); HEMATOCRIT 42.3 % (36.0-47.0); HEMOGLOBIN 13.7 g/dL (12.0-15.5); LYMPH # 4.7 x10^3/uL (1.0-4.8); LYMPH % 28 % (24-48); MEAN CORPUSCULAR HEMOGLOBIN 30 pg (25-35); MEAN CORPUSCULAR HGB CONC 33 g/dL (31-37); MEAN CORPUSCULAR VOLUME 91 fL (79-100); MONO # 1.2 x10^3/uL (0.0-1.1); MONO % 7 % (0-9); NEUT # 10.1 x10^3uL (1.8-7.7); NEUT % 59 % (31-73); PLATELET COUNT 341 x10^3/uL (140-400); RED BLOOD COUNT 4.65 x10^6/uL (3.50-5.40); RED CELL DISTRIBUTION WIDTH 14.5 % (11.5-14.5)
[2021-07-19] MEDS ORDERED: KETOROLAC 15 MG/ML VIAL. IVP ONE (20:30)
[2021-07-19 20:31] LABS: BACTERIA,URINE FEW /HPF (0-FEW); BILIRUBIN,URINE NEG (NEG); CLARITY,URINE HAZY; COLOR,URINE YELLOW; GLUCOSE,URINE NEG (NEG); NITRITE,URINE NEG (NEG)
[2021-07-19 20:32] LABS: SQUAMOUS EPITHELIAL CELL,UR MANY /LPF
[2021-07-19 20:32] LABS: CREATININE 0.7 mg/dL (0.6-1.0); GFR 121.5; POTASSIUM 3.6 mmol/L (3.5-5.1)
[2021-07-19 20:37] LABS: ALBUMIN 3.9 g/dL (3.4-5.0); ALBUMIN/GLOBULIN RATIO 1.2 (1.0-1.7); TOTAL BILIRUBIN 0.4 mg/dL (0.2-1.0); TOTAL PROTEIN 7.2 g/dL (6.4-8.2)
--- NOTE | 2021-07-19 21:09 | RAD ---
Exam: CT of abdomen and pelvis without contrast INDICATION: Right flank pain TECHNIQUE: Sequential axial images through the abdomen and pelvis obtained without IV contrast. Sagit symone and coronal reformatted images were reconstructed from the axial data and reviewed. Exposure: One or more of the following in the visualized dose reduction techniques were utilized for this examination: 1. Automated exposure control 2. Adjustment of the MA and/or KV according to patient size 3. Use of iterative of reconstructive technique Comparisons: 03/18/2019 FINDINGS: Heart size is normal. No pericardial effusion. Visualized lung bases are clear. No pleural effusion. Evaluation of the solid organs is limited secondary to noncontrast technique. Liver, spleen, pancreas, gallbladder and adrenals are unremarkable. No perinephric inflammation or hydronephrosis. No renal or ureteral calculi are identified. Bladder is partially decompressed not well evaluated. Uterus is not enlarged. No abnormal adnexal mas s. Large and small bowel are unremarkable. Appendix is normal. No free intra-abdominal air or fluid. No obstruction. Abdominal aorta has normal course and caliber. No enlarged abdominal lymph nodes are identified. No suspicious osseous lesions or acute fractures. IMPRESSION: No renal or ureteral calculi. No evidence for obstructive uropathy. Electronically signed by: eKvin Butler MD (07/19/2021 9:07 PM) [facility]
[2021-07-19] MEDS ORDERED: PHENAZOPYRIDINE 100 MG TABLET. ONE (21:22)
[2021-07-19 21:58] LABS: % EOS 2 % (0-5); % LYMPHS 35 % (24-48); % MONOS 5 % (0-10); % SEGS 58 % (35-66); PLT ESTIMATE ADEQUATE (ADEQUATE)
[2021-07-19] MEDS ORDERED: ACETAMINOPHEN 500 MG TABLET PO ONE (22:15)
[2021-07-19] MEDS ORDERED: diphenhydrAMINE 50 MG/ML VIAL IVP ONE (22:15)
[2021-07-19] MEDS ORDERED: MORPHINE SULFATE 4 MG/ML DISP.SYRIN. IV ONE (22:15)
[2021-07-19 22:27] VITALS: BP 153/88
[2021-07-19] MEDS ORDERED: metroNIDAZOLE 500 MG TABLET PO ONE (23:00)
[2021-07-19] MEDS ORDERED: METR-34 PO (23:09)
[2021-07-19] MEDS ORDERED: CEPH500C PO (23:09)
[2021-07-19] MEDS ORDERED: CEPHALEXIN 250 MG CAPSULE PO ONE (23:15)
== END 2021-07-19 23:25 | disposition home or self-care (01) ==
LOC: ER 19:43
DX: N39.0 Urinary tract infection, site not specified (principal); N76.0 Acute vaginitis; I10 Essential (primary) hypertension; Z98.51 Tubal ligation status
CPT/HCPCS: 36415; 74176; 80053; 81001; 81025; 83690; 85007; 85025; 87086; 87491; 87591; 96374; 96375; 99284; J1200; J1885; J2270; J3010; Q0111

== ENCOUNTER 2021-09-21 15:19 | Emergency (ER) | payer OTHER ==
[~2021-09-21] VITALS: Ht 167.6 cm; Wt 116.0 kg
[~2021-09-21 15:19] MED LIST changes: +CEPH500C PO; +DICY20TA PO; -DICY20TA3 PO; +METR-34 PO
[2021-09-21 15:24] VITALS: BP 141/81
[2021-09-21] MEDS ORDERED: IV NORMAL SALINE 1,000ML 1,000 ML IV ONE (15:30)
[2021-09-21] MEDS ORDERED: DEXAMETHASONE SOD PHOS 10 MG/ML VIAL. IVP ONE (15:30)
[2021-09-21] MEDS ORDERED: diphenhydrAMINE 50 MG/ML VIAL IVP ONE (15:30)
[2021-09-21] MEDS ORDERED: FAMOTIDINE 20 MG/2 ML VIAL IVP ONE (15:30)
--- NOTE | 2021-09-21 15:34 | PHYS DOC ---
Past History Past Medical History: Hypertension (KELLY KRAMER PROPERTY MANAGEMENT ASSISTANT) Past Surgical History: No Surgical History (KELLY KRAMER PROPERTY MANAGEMENT ASSISTANT) Alcohol Use: None Drug Use: None (KELLY KRAMER APRN) Adult General Chief Complaint Chief Complaint: ALLERGIC REACTION [facility] HPI Patient is a 26-year-old female patient with history of hypertension, peanut allergies, who presents to the ED today concerned she could have been exposed to peanuts and she is having an allergic reaction. 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 Patient denies of getting in contact with anyone in the hospital that was consuming peanuts. She is reporting slight shortness of breath. She states when exposed to peanuts the worst she has had is facial swelling, lip swelling and a rash, denies any throat or tongue swelling. Denies being intubated for allergic reaction. She states she has never had to use an EpiPen for her allergic reaction. She states Benadryl typically clears her symptoms. (KELLY KRAMER PROPERTY MANAGEMENT ASSISTANT) Review of Systems Review of Systems Constitutional: Denies fever or chills [] Eyes: Denies change in visual acuity, redness, or eye pain [] HENT: Reports throat itching. Denies nasal congestion or sore throat [] Respiratory: Denies cough reports shortness of breath [] Cardiovascular: No additional information not addressed in HPI [] GI: Denies abdominal pain, nausea, vomiting, bloody stools or diarrhea [] : Denies dysuria or hematuria [] Musculoskeletal: Denies back pain or joint pain [] Integument: Reports rash Neurologic: Denies headache, focal weakness or sensory changes [] All other systems were reviewed and found to be within normal limits, except as documented in this note. (KELLY KRAMER PROPERTY MANAGEMENT ASSISTANT) Allergies Allergies Allergies Coded Allergies Type Severity Reaction Last Updated Verified No Known Drug Allergies 05/14/19 No (KELLY KRAMER APRN) Physical Exam Physical Exam Constitutional: Well developed, well nourished, no acute distress, non-toxic appearance. [] HENT: Normocephalic, atraumatic, bilateral external ears normal, oropharynx moist, no oral exudates, nose normal. [] Airway is open, no throat swelling or lip swelling making gurgling sounds as she tries to itch her throat Eyes: PERRLA, EOMI, conjunctiva normal, no discharge. [] Neck: Normal range of motion, no tenderness, supple, no stridor. [] Cardiovascular:Heart rate regular rhythm, no murmur [] Lungs & Thorax: Bilateral breath sounds clear to auscultation [] Abdomen: Bowel sounds normal, soft, no tenderness, no masses, no pulsatile masses. [] Skin: Slight redness noted on the chest, patient is itching her chest Back: No tenderness, no CVA tenderness. [] Extremities: No tenderness, no cyanosis, no clubbing, ROM intact, no edema. [] Neurologic: Alert and oriented X 3, normal motor function, normal sensory function, no focal deficits noted. [] Psychologic: Affect normal, judgement normal, mood normal. [] (KELLY KRAMER APRN) EKG EKG [] (KELLY KRAMER APRN) Radiology/Procedures Radiology/Procedures [] (KELLY KRAMER APRN) Heart Score C/O Chest Pain: N/A Risk Factors: Risk Factors: DM, Current or recent (<one month) smoker, HTN, HLP, family history of CAD, obesity. Risk Scores: Risk Factors: DM, Current or recent (<one month) smoker, HTN, HLP, family history of CAD, obesity. (KELLY KRAMER APRN) Course & Med Decision Making Course & Med Decision Making Pertinent Labs and Imaging studies reviewed. (See chart for details) This is a 26-year-old female patient presenting to the ED today complaining of an allergic reaction to peanuts. Patient states she was working today and believes she could have gotten exposed to peanut. She is complaining of throat itching, a rash on her chest and slight shortness of breath though her O2 sats above 95% on room air. Her airway is open, there is no throat, tongue or lip swelling. 1620 patient is resting comfortably, no throat itching, no rashes. Discharge to home. Follow-up with primary care doctor in 1 week (KELLY KRAMER APRN) Dragon Disclaimer Dragon Disclaimer This electronic medical record was generated, in whole or in part, using a voice recognition dictation system. (KELLY KRAMER APRN) Attending Co-Sign The patient was seen and interviewed as well as examined at the bedside. The chart was reviewed. The case was discussed. Agree with the plan of care. (MENDEL LAFLEUR DO) Departure Departure: Impression: Primary Impression: Allergic reaction Disposition: HOME / SELF CARE / HOMELESS Condition: STABLE Referrals: PCP,NO (PCP) Follow-up with your primary care doctor in one week Patient Instructions: Allergies, Generic Additional Instructions: You were evaluated in the emergency room for an allergic reaction. We encourage you to take Benadryl every 6 hours until symptoms have cleared out. We encourage you to take Pepcid every day until symptoms have cleared up. Take the prescribed prednisone until completed. Please follow-up with your primary care doctor in the course of this week or next week, come back to the ED at any point symptoms worsen Scripts Prednisone (PREDNISONE) 50 Mg Tablet 1 TAB PO DAILY, #5 TAB Prov: KELLY KRAMER APRN 09/21/21 Famotidine (FAMOTIDINE) 20 Mg Tablet 1 TAB PO DAILY, #7 TAB Prov: KELLY KRAMER APRN 09/21/21 Diphenhydramine Hcl (BENADRYL) 25 Mg Capsule 1 CAP PO Q6HRS, #30 CAP 0 Refills Prov: KELLY KRAMER APRN 09/21/21 Problem Qualifiers Primary Impression: Allergic reaction Encounter type: initial encounter Qualified Codes: T78.40XA - Allergy, unspecified, initial encounter KELLY KRAMER APRN Sep 21, 2021 15:34 MENDEL LAFLEUR DO Sep 23, 2021 15:08
[2021-09-21] MEDS ORDERED: DIPH25CA58 PO (16:29)
[2021-09-21] MEDS ORDERED: FAMO20TA5 PO (16:29)
[2021-09-21] MEDS ORDERED: PRED50TA PO (16:29)
== END 2021-09-21 18:02 | disposition home or self-care (01) ==
LOC: ER 15:19
DX: T78.40XA Allergy, unspecified, initial encounter (principal); I10 Essential (primary) hypertension; Z91.010 Allergy to peanuts; X58.XXXA Exposure to other specified factors, initial encounter
CPT/HCPCS: 96361; 96374; 96375; 99284; J1100; J1200; J3490; J7030